=== PATIENT | female | born 1940 | race Caucasian/White ===

== ENCOUNTER → 2020-01-27 13:59 | Outpatient (CLI) | payer MEDICARE, OTHER, SELFPAY ==
--- NOTE | 2020-01-27 14:39 | CT_ITS ---
STUDY: CT LEFT ANKLE WITHOUT CONTRAST REASON FOR EXAM: Female, 79 years old. Fx lateral mall, lt fibula RADIATION DOSAGE (If Supplied By Facility): CTDIvol = ( 15.35 ) mGy, DLP = ( 342.25 ) mGycm TECHNIQUE: Thin section transaxial imaging of the ankle was obtained, with sagittal and coronal reconstructed images. Individualized dose optimization techniques were used for this CT. COMPARISON: None. FINDINGS: There is evidence of an avulsion fracture of the medial malleolus. Oblique fracture of the lateral malleolus. Vertical fracture of the posterior malleolus of the distal tibia. There is asymmetry of the ankle mortise. Normal talus, calcaneus, navicular and cuboid tarsal bones. Normal subtalar, talonavicular and calcaneocuboid articulations. Normal navicular-cuneiform, cuneiform tarsal bones and intercuneiform articulations. Normal tarsometatarsal articulations and visualized metatarsi. Soft tissue swelling. CT/Extremity Lower without Contra IMPRESSION: Avulsion fracture of the medial malleolus as well as oblique fracture of the lateral malleolus and vertical fracture of the posterior malleolus of the distal tibia. Asymmetry of the ankle mortise. Diffuse soft tissue swelling. Electronically Signed: [place], at 15:26 EDT , Service support ,
--- NOTE | 2020-01-27 14:40 | EKG12_ITS ---
Test Reason : PRE OP Blood Pressure : / mmHG Vent. Rate : 084 BPM Atrial Rate : 084 BPM P-R Int : 108 ms QRS Dur : 078 ms QT Int : 358 ms P-R-T Axes : 078 078 039 degrees QTc Int : 423 ms Sinus rhythm with short MI with Premature atrial complexes Otherwise normal ECG Confirmed by HEATHER VARNER ([id number]), rewrite editor MARILY MONTERROSO ([id number] on 01/30/2020 11:12:10 AM Referred By: Kiki Perales Confirmed By:HEATHER VARNER
[2020-01-27 14:53] LABS: Hematocrit 36.9 % (37-47); Hemoglobin 12.1 g/dL (12.0-15.0); Mean Corp Hgb Conc 32.8 g/dL (32-36); Mean Corpuscular Hgb 30.5 pg (27.0-32.0); Mean Corpuscular Volume 92.9 fL (81-99); Mean Platelet Vol. 9.9 fl (6.2-12.0); Platelet Count 185 K/mm3 (150-450); RBC Distribution Width CV 12.7 % (11.6-14.6); RBC Distribution Width SD 43.5 fl (35.1-43.9); Red Blood Count 3.97 M/mm3 (4.2-5.4); White Blood Count 7.6 K/mm3 (4.4-11.0)
[2020-01-27 15:31] LABS: Hemoglobin A1c 5.4 % (3.8-5.6)
[2020-01-27 15:43] LABS: Anion Gap 6 (5-15); BUN 13 mg/dL (7-18); Calcium,Total 8.6 mg/dL (8.5-10.1); Chloride 110 mmol/L (98-107); Creatinine, Serum 0.65 mg/dL (0.55-1.02); EST Glomerular Filtration Rate 93 mL/min (>60); Est Glom Filt Rate - Afr Amer 113 mL/min (>60); Glucose 102 mg/dL (74-106); Potassium 3.2 mmol/L (3.5-5.1); Sodium Level 141 mmol/L (136-145)
[2020-01-27 15:44] LABS: International Normalized Ratio 1.1; Prothrombin Time (Protime)PT. 14.1 SECONDS (11.7-14.9)
== END ==
PROVIDERS: Referring Provider Registered Nurse; Visit Provider Registered Nurse
DX: S82.62XA Displaced fracture of lateral malleolus of left fibula, initial encounter for closed fracture (principal); Z01.818 Encounter for other preprocedural examination; Z01.810 Encounter for preprocedural cardiovascular examination; Z01.812 Encounter for preprocedural laboratory examination
CPT/HCPCS: 36415; 73700; 80048; 83036; 85027; 85610; 93005

== ENCOUNTER 2020-02-07 14:39 | Inpatient (IN) | payer MEDICARE, OTHER, SELFPAY ==
[2020-02-07] VITALS (9 sets, daily range): BP systolic 119–145; BP diastolic 63–86; PULSE 75–89; RESP 16; TEMP 36.5–37.1; O2SAT 95–100; BMI 20.1
[2020-02-07] MEDS: Lactated Ringers 1,000 ML 100 ML IV ×3 (10:41→22:17)
--- NOTE | 2020-02-07 11:30 | RAD_ITS ---
HISTORY: ORIF L ANKLE TRIMAL FRACTURE ADDITIONAL HISTORY: None provided. TECHNIQUE: 15 fluoroscopic spot views of the left ankle Number of images including paperwork: 15 COMPARISON: CT 01/27/2020 FINDINGS: BONES: Trimalleolar right ankle fracture. Laterally applied plate and multiple screws are present transfixing the fibula. JOINTS: No subluxation. SOFT TISSUES: No distinct foreign body. Soft tissue swelling RAD/Ankle min 3 Views IMPRESSION: Intraoperative fluoroscopic guidance for ORIF of trimalleolar left ankle fracture. at 0800 Reported and signed by: Skyla Kwong MD Electronically Signed: Skyla Kwong MD at 8:00 EDT Tel , Service support ,
--- NOTE | 2020-02-07 14:52 | PCM.OPRPT ---
Problem List (1) Fracture of ankle, trimalleolar, left, closed Status: Acute Qualifiers: Encounter type: initial encounter Qualified Code(s): S82.852A - Displaced trimalleolar fracture of left lower leg, initial encounter for closed fracture (2) Dislocation of left ankle joint, initial encounter Status: Acute Report of Operation Date of Procedure: 02/07/20 Pre-Operative Diagnosis: 1. Left ankle trimalleolar fracture, closed. 2. Left ankle joint dislocation Post-Operative Diagnosis: Same as preoperative Surgery/Procedure Performed:: 1. Open reduction with internal fixation of left ankle joint. 2. Primary repair of deltoid ligament tear Description of Surgical Findings:: Consistent with diagnosis. Reduction of deformity of fibula achieved and held with internal fixation. Reduction of deformity of posterior malleolus fracture achieved. Medial malleolus fragment was too small to hold internal fixation, so was excised. Primary repair of the deltoid ligament was performed. forest fire fighter: Kiki Perales Type of Anesthesia:: General/Regional - With a popliteal and saphenous block given to the left lower extremity Anesthesiologist: Harlan Green Special Medications: 750mg of vancomycin given preoperatively Specimen's removed: Bone, medial malleolus, left ankle Drains: None Estimated Blood Loss (mL): 10 Description of Procedure: Hemostasis: Pneumatic thigh tourniquet placed to the level of the left thigh at 250 mmHg for 120 minutes Estimated blood loss: 10 mL Materials: #1. Milena 6 hole one third tubular plate. 2. [place] 3.5 x 10 mm locking screw x2. 3. Milena 3.5 x 12 mm locking screw x3. 4. [place] 3.5 x 14 mm locking screw. 5. Size 0 Vicryl. 6. Size 2-0 Vicryl. 7. Size 3-0 Vicryl. 8. Size 4-0 nylon. Injectables: None Complications: Significant comminution of the medial malleolus noted. Furthermore, her bone was soft. Due to this, the medial malleolus was unable to hold any internal fixation. Due to the size of the fragment and the comminution present, it was determined that the fragment to be removed and a primary repair of the deltoid ligament to be performed. Condition: Stable Indications: Patient is a 79-year-old female with no significant past medical history who suffered an injury to her left ankle on January 24, 2020. She was helping her outside. Her experienced a cardiac event, and fell off of a ladder. The then fell on her, hurting her left ankle. Patient presented to the [facility] emergency department at that time. X-rays were taken, revealing a left ankle trimalleolar fracture. Patient initially saw Kiki Perales, nurse practitioner, in my office on January 25, 2020 for initial evaluation. At that time, a full discussion was had with the patient and the patient's daughter about the patient's current clinical condition. Due to the nature of the fracture, surgical intervention was recommended. Preoperative testing was performed along with a CT scan of the left ankle. Evidence of fracture blisters were present at initial appointment. Local wound care was initiated, and patient first saw me in the office on January 29. At that time, the patient was significantly swollen her left ankle, and the fracture blisters showed minimal healing. I discussed with the patient and the daughter that due to the swelling and fracture blisters that were present, I recommended to wait at least 1 more week prior to surgical intervention. They were agreeable to this. The patient was placed back in a multilayer compressive dressing at that time. I discussed with the patient conservative and surgical interventions for this. Due to the nature of the fracture present in her active lifestyle, I recommended surgical intervention. I did discuss with the patient that due to her advanced age, she is at high risk for delayed or nonhealing wounds and delayed or nonhealing bone. I did propose an external fixator to help her. Patient declined an external fixator, and was requesting open reduction with internal fixation. The risks, benefits, possible outcomes, possible complications of the surgical procedure were discussed with the patient and the patient's daughter. These include but not limited to delayed or nonhealing wounds, delayed or nonhealing bone, loss of function of limb, DVT, infection, loss of limb, loss of life. All the patient's and patient's daughter's questions were answered to their satisfaction and all their concerns were addressed. No guarantees were made as to the outcome of the procedure. They understood all aspects of the procedure, and wished to proceed with the surgical intervention. I had the patient obtain medical clearance from her primary care physician, who cleared her. CT scan was then performed her left ankle, and when the patient came back to my office on February 05, it was reviewed. I did discuss with them the surgical plan at that time, and they were agreeable at that time. It was then determined, after looking at the advanced healing of the fracture blisters and the reduction of edema in her left ankle, the surgical intervention would be performed on February 07, 2020. Operative report: Before the patient was brought to the operating room, the risks, benefits, possible outcomes, possible complications of the procedure were discussed with the patient and the patient's daughter once again. All their questions were answered to their satisfaction and all their concerns were addressed. No guarantees were made as to the outcome of the procedure. The patient understood all aspects of the procedure, and consent was then signed by the patient. Before the patient was brought to the operating room, the anesthesiologist administered a popliteal block to the left lower extremity. Patient was then brought into the operating room. At that time, preoperative antibiotics were given. Patient was then placed on the operating room table in the supine position. Adequate padding was placed in all areas of pressure points. Anesthesia then took control of the airway. After timeout, under general anesthesia, well-padded pneumatic thigh tourniquet was placed to level left thigh. Next, 10 mL of 2% lidocaine plain was distributed a proximal saphenous nerve block fashion in the area of the tibial tuberosity. The left foot, ankle, leg were then scrubbed, prepped, draped in the usual sterile manner. Next, attention was then directed to the lateral malleolus of the left ankle. Radiograph evaluation was used to determine the distal tip of the lateral malleolus, level of the fracture, and the lateral aspect of the distal one third of the fibular shaft. These were then marked on the patient. Radiograph evaluation was used to determine the level of the fracture of the medial malleolus and the medial malleolus fracture. These were then marked on the patient as well. At this time, the left lower extremity was elevated and exsanguinated via Esmarch and inflation with pneumatic thigh tourniquet was performed to 250 mmHg. Attention was then directed to the lateral aspect of the left ankle at the level of the lateral malleolus. At this time, #15 blade was used to perform a linear longitudinal incision starting at the distal tip of the lateral malleolus extending proximally to a level proximal to the fibular fracture. This incision was approximately 6 cm in length. This incision was deepened utilizing sharp and blunt dissection. Care was taken retract all vital neural and vascular structures. All bleeders were cauterized and ligated as necessary. At this time, a linear periosteal incision was made in line with the original skin incision. The periosteal and capsular structures then reflected anteriorly and posteriorly, thus exposing the fibular fracture at the operative site. At this time, the fibula fracture was noted to be comminuted. Furthermore, her bone was noted to be significantly soft. Due to this, I believed that an interfragmentary screw would not hold. It was then determined that a locking plate would be placed on the lateral aspect of the fibula to hold the fibula in the correct the reduced position. The fibula was then reduced and held via temporary fixation. Radiograph evaluation was then performed. The fibula was noted to be out the length and in a reduced position. At this time, the [place] one third tubular plate was placed on the lateral aspect the left fibula and held via temporary fixation. Radiograph evaluation was then performed. The plate was noted to be in adequate position. This plate was then held via locking screws. Of note during insertion of the screws was the adequate compression of the plate to the bone. Furthermore, no shifting any of the fragments occurred during insertion of the screws. Once her screws were fully inserted, all temporary fixation was then removed. Radiograph evaluation was then performed once again. The fibula was noted to be out to length, and held in the reduced position via the screws. Live radiograph evaluation was used to assess the posterior malleolus fracture. Due to the reduction of the fibula, the posterior malleolus fracture was reduced. Furthermore, due to the size of the fragment and the newly reduced position, it was determined that no fixation would be needed for this. The fragment with less than 25% of the articular surface of the ankle joint, and it was believed that it would not interfere with ankle joint range of motion. Radiograph evaluation also was used to perform the hook test to assess the syndesmosis of the left ankle. No widening was noted at the level of the distal tibia fibular joint. The syndesmosis was deemed intact. At this time, attention was then directed to the medial aspect of the medial malleolus. Next, a #15 blade was used to perform a curvilinear incision starting at the level of the fracture of the medial malleolus extending distally to the distal tip of the medial malleolus. This incision was deepened utilizing blunt dissection down to the level of the medial malleolar fragment. At this time, this fragment was noted to be comminuted. This fragment was reduced via temporary fixation. Multiple attempts were performed to hold this fragment in the corrected position with a size 4-0 and size 3-0 cannulated cancellus screw. With each attempt, it was noted that the fragment became more comminuted. Furthermore, the bone was noted to be soft, and would not hold the fixation. Due to the size of the fracture that was present and the multiple comminuted pieces, it was decided that internal fixation would not benefit the patient. The fragment and the multiple comminuted pieces were removed and passed from the operative site. Visual inspection was then performed of the deltoid ligament. Due to the injury, there was evidence of tearing of the deltoid ligament. A size 0 Vicryl was used to repair the deltoid ligament in a pants over vest stitch fashion. Adequate realignment of the deltoid ligament was had. Radiograph evaluation was then performed at this time. The talus was noted to be back in a rectus position underneath the tibia in the AP and the lateral view. The fibula was noted to be out the length and held in the corrected reduced position via the internal fixation. The posterior malleolus fracture was noted to be reduced and back into anatomical alignment. There was no radiographic evidence of medial malleolar fragments at this time. The pneumatic thigh tourniquet was then released and a prompt hyperemic response noted to the entirety of the left lower extremity. Each surgical site was then irrigated copious amounts normal sterile saline. The subcutaneous tissue of the medial surgical site was reapproximated coapted utilizing 2-0 Vicryl and 3-0 Vicryl. The skin of the medial surgical site was reapproximated coapted utilizing 4-0 nylon in a simple interrupted and horizontal mattress fashion. The periosteal and capsular structures of the lateral surgical site were reapproximated coapted utilizing 2-0 Vicryl and 3-0 Vicryl. The subcutaneous tissue was reapproximated coapted utilizing 2-0 Vicryl and 3-0 Vicryl. The skin was reapproximated coapted utilizing 4-0 nylon in a simple interrupted and horizontal mattress fashion. Each surgical site was then dressed with Betadine soaked gauze. The fracture blister sites were dressed with xeroform. The left ankle was dressed with a dry sterile dressing setting of 4 x 4 gauze ABD pads, wrapped with kerlix. Multiple ABD pads were placed around the ankle to aid in protection. The left foot and ankle were then wrapped with an Damon bandage. At this time, a stockinette was placed on the left lower extremity from the toes to the tibial tuberosity. Cast padding was wrapped from the metatarsal heads extending proximally to level just distal to the tibial tuberosity. A posterior splint was fashioned to the left lower extremity and was adhered to the left lower extremity utilizing Damon bandages. Care was taken to make sure the foot and ankle held in neutral position as the posterior splint dried. Neurovascular status was assessed at the end of the application and deemed intact to left lower extremity. Patient tolerated the anesthesia and procedure well and was transported to the PACU vital signs stable neurovascular status intact the left lower extremity. After period of postoperative monitoring, patient will be admitted for further evaluation and continued pain management. The goal would be to transfer this patient to a rehabilitation facility. The family services assistant, the nurse practitioner, was utilized throughout the entire procedure. She helped with patient positioning, holding of limb, holding of retractors. She helped with exposure throughout. She helped with bandage application, and cast application. Without the family services assistant, surgical time would have been increased and surgical outcome could have been less optimal. - Complications Significant comminution noted of the medial malleolus. Furthermore, the medial malleolus fracture was soft, it was not able to hold any internal fixation. Due to the size and comminution of the fracture fragment, it was determined to remove the fragment in his entirety. Primary repair of the deltoid ligament was then performed. - Admit VTE Documentation VTE Present on Admission: No VTE Mechan Device Prophylaxis: SCD's VTE Pharm Prophylaxis ordered?: Yes
--- NOTE | 2020-02-07 15:30 | CASEMGMT ---
Social Work Note NIKOS updated by RACHEL that pt will need SNF at discharge, family prefers for pt to stay at [facility]. NIKOS placed a call to [facility] in TCU. [facility] states she may have a bed available on TCU but will follow up with NIKOS tomorrow. NIKOS to continue to follow. Sera Gerardo PLUGMAN, ASTRONOMY DEPARTMENT CHAIR
--- NOTE | 2020-02-07 15:31 | PCM.HP.STD ---
Problem List (1) Fracture of ankle, trimalleolar, left, closed Status: Acute Qualifiers: Encounter type: initial encounter Qualified Code(s): S82.852A - Displaced trimalleolar fracture of left lower leg, initial encounter for closed fracture (2) Dislocation of left ankle joint, initial encounter Status: Acute History of Present Illness Date of Admission: 02/07/20 Chief Complaint: Painful left ankle secondary to traumatic injury Patient is a 79-year-old female with PMH of OA and hard of hearing who suffered an injury to her left ankle on January 24, 2020. She was helping her outside. Her experienced a cardiac event, and fell off of a ladder. The then fell on her, hurting her left ankle. Patient noticed significant pain of her left ankle, and there was a deformity as well. Patient was unable to bear weight on left ankle due to the injury. Patient presented to the [facility] emergency department at that time. X-rays were taken, revealing a left ankle trimalleolar fracture. A closed reduction was performed, and patient was discharged with a posterior splint and instructed to remain NWB to left ankle. Patient initially saw Kiki Perales, nurse practitioner, in my office on January 25, 2020 for initial evaluation. At that time, a full discussion was had with the patient and the patient's daughter about the patient's current clinical condition. Due to the nature of the fracture, surgical intervention was recommended. Preoperative testing was performed along with a CT scan of the left ankle. Evidence of fracture blisters were present at initial appointment. Local wound care was initiated, and patient first saw me in the office on January 29. At that time, the patient was significantly swollen her left ankle, and the fracture blisters showed minimal healing. I discussed with the patient and the daughter that due to the swelling and fracture blisters that were present, I recommended to wait at least 1 more week prior to surgical intervention. They were agreeable to this. The patient was placed back in a multilayer compressive dressing at that time. I discussed with the patient conservative and surgical interventions for this. Due to the nature of the fracture present in her active lifestyle, I recommended surgical intervention. I did discuss with the patient that due to her advanced age, she is at high risk for delayed or nonhealing wounds and delayed or nonhealing bone. I did propose an external fixator to help her. Patient declined an external fixator, and was requesting open reduction with internal fixation. The risks, benefits, possible outcomes, possible complications of the surgical procedure were discussed with the patient and the patient's daughter. These include but not limited to delayed or nonhealing wounds, delayed or nonhealing bone, loss of function of limb, DVT, infection, loss of limb, loss of life. All the patient's and patient's daughter's questions were answered to their satisfaction and all their concerns were addressed. No guarantees were made as to the outcome of the procedure. They understood all aspects of the procedure, and wished to proceed with the surgical intervention. I had the patient obtain medical clearance from her primary care physician, who cleared her. CT scan was then performed her left ankle, and when the patient came back to my office on February 05, it was reviewed. I did discuss with them the surgical plan at that time, and they were agreeable at that time. It was then determined, after looking at the advanced healing of the fracture blisters and the reduction of edema in her left ankle, the surgical intervention would be performed on February 07, 2020. Patient does live at home with her , and her is still in the hospital. Patient was unable able to be perform activities daily living on her own, and will not have assistance. Due to the pain that was present and her safety, she was admitted for pain management and transition to a subacute nursing facility. [] Past Medical History Medical History: Medical History (Last Updated 02/07/20 @ 15:[address] Refugio Leyva, JENNIFER) Hard of hearing H91.90 Osteoarthritis (arthritis due to wear and tear of joints) M19.90 Allergies amoxicillin Allergy (Verified 02/07/20 10:30) Hives clindamycin Allergy (Verified 02/07/20 10:30) Hives diphenhydramine [From Benadryl] Allergy (Verified 02/07/20 10:30) Swelling Home Medications: Ambulatory Orders Medication Instructions Recorded Donley 650 mg PO DAILY 02/01/20 Ascorbic Acid [Vitamin C] 500 mg PO DAILY 02/01/20 Cartilage/Collagen/Bor/Hyalur 1 ea PO DAILY 02/01/20 [Joint Health Tablet] Fish Oil/Dha/Epa [Fish Oil 1,200 1 ea PO DAILY 06/03/20 mg Fish Oil] Oxycodone HCl/Acetaminophen 1 ea PO Q6H PRN 02/01/20 [Oxycodone-Acetaminophen 5-325] Vitamin E 400 unit PO DAILY 02/01/20 Surgical History: no surgical history Psychiatric History: No pertinent psych hx WAFER FABRICATOR History: No pertinent WAFER FABRICATOR history Lives: Spouse/ Significant Other Smoking Status: Never smoker Tobacco Use: Non-smoker Alcohol: None Drugs: None Review of Systems Constitutional: Denies: Anorexia, Chills, Fever, Night Sweats Eyes: Denies: Blurred vision, Double vision HEENT: Reports: Difficulty Hearing, Hard of Hearing. Denies: Difficulty Swallowing, Dysphasia, Ear Pain, Eye Pain Cardiovascular: Denies: Chest Pain, Claudication, Chest Pressure, Chest Tightness, Edema Respiratory: Denies: Cough, Hemoptysis, Pleuritic Pain, Shortness of Breath, Shortness of breath at rest, Shortness of breath upon exertion, Wheezing Gastrointestinal: Denies: Abdominal Pain, Constipation, Diarrhea, Dyspepsia, Hematemesis, Nausea, Vomiting Genitourinary: Denies: Dysuria, Frequency, Hematuria, Hesitancy, Incontinence Gynecological: Denies: Breast symptoms, Excessively long or heavy periods Musculoskeletal: Reports: Arm Pain - Admits to right shoulder pain secondary tofall, Leg Pain - Admits to left ankle pain secondary to injury Skin: Denies: Dryness, Jaundice, Lesions Neurological: Denies: Balance problems, Blurred vision, Double vision, Change in Speech, Slurred speech, Confusion Psychiatric: Denies: Anxiety, Depression Endocrine: Denies: Change in Body Habitus, Heat/ Cold Intolerance, Polydipsia, Polyuria Comment: Patient does wear glasses VTE Information - Inpt Only VTE Present on Admission: No VTE Mechan Device Prophylaxis: SCD's VTE Pharm Prophylaxis ordered?: Yes Patient Problems: Active and Suspected Problems (Last Updated 02/07/20 @ 15:[address] Refugio Leyva, DPM) Fracture of ankle, trimalleolar, left, closed (Acute) Dislocation of left ankle joint, initial encounter (Acute) Subjective: Patient seen at bedside resting comfortably. Patient is status post surgical intervention. Patient admits to no pain of the left lower extremity, states that she is comfortable at this time. Patient denies any other acute complaints at this time. Currently, patient denies fever, chills, nausea, vomiting, shortness of breath, chest pain. Patient denies left calf pain. Objective: Lower extremity physical exam: Dressing is clean, dry, intact the left lower extremity with no evidence of strikethrough. Capillary fill time is less than 3 seconds to all digits of the left foot. Sensation is absent to the left foot secondary to lower extremity nerve block given by anesthesia. Foot and ankle appear in a rectus position at this time. - Physical Exam Vitals/I&O's: Vital Signs Temp Pulse Resp BP Pulse Ox 98.4 F 75 16 145/86 H 96 02/07/20 10:31 02/07/20 10:31 02/07/20 10:31 02/07/20 10:31 02/07/20 10:31 Oxygen Delivery Method Room Air Weight: 49.895 kg Body Mass Index (BMI) 20.1 Intake and Output for Last 24 Hours 02/05/20 02/06/20 02/07/20 23:59 23:59 23:59 Intake Total 265 / 265 Balance 265 / 265 General: Alert, Oriented x3, Cooperative, No apparent distress HEENT: Atraumatic, PERRLA, EOMI, Normocephalic Oral: Moist Mucosa Neck: Supple, No JVD Lungs: Clear to auscultation, Normal air movement, No rhonchi, No wheeze, No rales Cardiovascular: Regular rate, Regular Rhythm, Normal S1, Normal S2 Abdomen: Bowel Sounds Present, Soft, Non Tender, Non-Distended Extremities: Capillary Refill Less than 3 Seconds, Peripheral Pulses Normal Skin: No breakdown - Left ankle fracture blisters that were addressed during operative intervention. No other areas of breakdown was noted. Musculoskeletal: No Tenderness to Palpation of Joints or Extremities, No Muscle Wasting, Arthritic Changes - Noted throughout the hands, knees, right ankle Neurological: Neuro grossly intact, Motor Exam 5/5 strength throughout, Sensory exam intact to light touch and pain Psych/Mental Status: Alert and oriented to time, place, person, mood and affect Laboratory Results 02/07/20 12:30: COVID-19 ([facility]) Not Detected Current Medications Hydrocodone Bitart/Acetaminophen (Beverly 5mg-325mg) 1 - 2 tablet PO Q6H PRN PRN PRN Reason: Pain Score 1-5/10 Docusate Sodium (Colace) 100 mg PO BID PRN PRN PRN Reason: CONSTIPATION Enoxaparin Sodium (Lovenox) 40 mg SC DAILY@0600 [facility] Lactated Ringer's () 1,000 mls @ 100 mls/hr IV .Q10H [facility] Last Admin: 02/07/20 10:41 Dose: 100 mls/hr Documented by: Morphine Sulfate () 1 mg IV Q2H PRN PRN PRN Reason: Pain Score 6-10/10 Ondansetron HCl (Zofran) 4 mg IV Q8H PRN PRN PRN Reason: Nausea Prochlorperazine Maleate (Compazine Tablet) 5 - 10 mg PO Q6H PRN PRN PRN Reason: Nausea/vomiting Assessment/Plan All Active Problems (Last Updated 02/07/20 @ 15:[address] Refugio Leyva, JENNIFER) Fracture of ankle, trimalleolar, left, closed (Acute) Dislocation of left ankle joint, initial encounter (Acute) Assessment: This is an 79-year-old female status post left ankle bimalleolar fracture open reduction with internal fixation. Plan: Patient chart reviewed and patient evaluated. Full discussion had with the patient and the patient's daughter about the patient's current clinical condition. I discussed with the patient and the patient's daughter the operative findings and interventions that were performed. Due to the patient's current living status, pain, and the injury of her left ankle, I recommend admission for pain management and eventual transfer to her nursing facility. Patient and patient's daughter agreeable to this. At this time, the patient to keep the dressing clean, dry, intact the left lower extremity. Patient did not get the dressing wet. Postoperative pain medications ordered for the patient. Postoperative antibiotics ordered for the patient. DVT prophylaxis ordered for the patient. Patient is to remain nonweightbearing to left lower extremity. An order for physical therapy was placed to assist in nonweightbearing to left lower extremity. Appreciate physical therapy input. Social work consult was placed to assist in transfer after acute care stay. I appreciate social work input. Continue home medications as ordered. Continue ice around the left knee and elevation of left lower extremity. Patient can begin a normal diet when tolerated. Procedure Criteria Procedure Type: Essential Procedure Essential: Yes Criteria Statement: On 11/15/2019 the [facility] of [facility] ([facility]) Public Order signed by [facility] Director Gill Thomas M.D., regarding the Management of Non-Essential Surgeries and Procedures for the purpose of preserving Personal Protective Equipment (PPE) and critical hospital capacity and resources within [place] went into effect as of 11/16/2019 at 5:00PM. According to the [facility] Public Order: This action will remain in full force and effect until the State of Emergency declared by the Governor no longer exists or the Director of the [facility] rescinds or modifies this Order. This [facility] order stated all non-essential or elective surgeries and procedures that utilize PPE should be delayed unless there is undue risk to the current or future health of a patient. After reviewing the aforementioned [facility] Public Order and the patient's clinical case, I have determined that the scheduled procedure meets the criteria to go forward. Risk to Patient if Procedure Delayed: Threat of permanent dysfunction of an extremity or organ if delayed Inpatient E&M: [id number] Init Hosp L2
--- NOTE | 2020-02-07 15:45 | RAD_ITS ---
STUDY: X-RAY - LEFT ANKLE REASON FOR EXAM: Female, 79 years old. LEFT ANKLE ORIF TECHNIQUE: 3 view(s) of the ankle. COMPARISON: None. FINDINGS: Postsurgical changes status post open reduction internal fixation of distal fibular fracture with indwelling orthopedic hardware. Mild displaced fracture of the distal tibial plafond RAD/Ankle min 3 Views IMPRESSION: Status post ORIF distal fibular fracture Electronically Signed: Tyler Andrdae MD at 16:59 EDT , Service support ,
[2020-02-07] MEDS: HYDROcodone Bitartrate/Apap 5/325 Tablet PO ×2 (18:40→22:39)
[2020-02-07] MEDS: Morphine 2 MG/ML Syringe 1 MG IV (20:09)
[2020-02-08] MEDS: Morphine 2 MG/ML Syringe 1 MG IV (01:21)
[2020-02-08 03:30] VITALS: BP 162/79; PULSE 84; RESP 16; TEMP 36.8; O2SAT 95
[2020-02-08] MEDS: Enoxaparin 40 MG/0.4 ML Syringe SC (06:00)
[2020-02-08 07:43] VITALS: BP 119/60; PULSE 89; RESP 16; TEMP 37.3; O2SAT 95
[2020-02-08] MEDS: Lactated Ringers 1,000 ML 100 ML IV (08:58)
[2020-02-08] MEDS: Doxycycline 100 MG CAPSULE PO (10:26)
--- NOTE | 2020-02-08 10:55 | CASEMGMT ---
Social Work Note SW received message from Ning in TCU stating she spoke with [facility] and TCU does have a bed available for pt today. Sera Gerardo VOCATIONAL COORDINATOR, COST RECOVERY TECHNICIAN
--- NOTE | 2020-02-08 12:03 | CASEMGMT ---
Addendum entered by Sera Gerardo 02/08/20 12:08: SW placed a call to Ning in TCU and left message informing her that pt may be discharged today to TCU. Original Note: Social Work Assessment Referral Date: 02/07/2020 Date of Assessment: 02/08/2020 Reason for consult: SNF Informant: /PA Personal Status: SW met with pt to complete initial assessment. SW introduced self and role at [facility]. Pt is alert and orientated x3. Pt states that she lives with her in a one story home with two steps to enter. Pt states no handrails next to steps. Pt states that she has a walker at home, denied other DME. Pt can't remember who her PCP is, states my daughter handles all of that information. Pharmacy is [facility]. Per chart, pt's PCP is Janis Leal. Substance Abuse Hx: Pt denied Mental Health Hx: Pt denied HHC: Pt denied SNF: Pt denied SW spoke with pt regarding discharge plans and that this worker was updated yesterday that pt's family wanted pt to stay at TCU for therapy before returning home. SW updated pt that TCU does have a bed available and is able to accept. SW did provide pt with list of SNF that accept pt's insurance. Pt agreeable to TCU. Pt gave this worker permission to call her daughter Leila to update. SW placed a call to pt's daughter Leila and updated her on acceptance to TCU. Leila states understanding. Plan: TCU once medically cleared Sera Gerardo BODY COVERER, ISOTOPE TECHNICIAN
--- NOTE | 2020-02-08 12:21 | PCM.DC.SUM ---
Discharge Date and Diagnosis - Problem List Patient Problems: Active and Suspected Problems (Last Updated 02/07/20 @ 15:[address] Refugio Leyva DPM) Fracture of ankle, trimalleolar, left, closed (Acute) Dislocation of left ankle joint, initial encounter (Acute) Date of Admission: 02/07/20 Date of Discharge: 02/08/20 - Primary Discharge Diagnosis Acute Problems: Active Problems (Last Updated 02/07/20 @ 15:[address] Refugio Leyva DPM) Fracture of ankle, trimalleolar, left, closed (Acute) Dislocation of left ankle joint, initial encounter (Acute) - Secondary Discharge Diagnosis Chronic Problems: Osteoarthritis Hard of hearing Hospital Course and Treatment Imaging Results: STUDY: X-RAY - LEFT ANKLE taken postoperative on 02/07/2020 REASON FOR EXAM: Female, 79 years old. LEFT ANKLE ORIF TECHNIQUE: 3 view(s) of the ankle. COMPARISON: None. FINDINGS: Postsurgical changes status post open reduction internal fixation of distal fibular fracture with indwelling orthopedic hardware. Mild displaced fracture of the distal tibial plafond RAD/Ankle min 3 Views IMPRESSION: Status post ORIF distal fibular fracture Operations: - - left ankle trimalleolar open reduction with internal fixation Summary of Care Provided: [] Patient is a 79-year-old female with PMH of OA and hard of hearing who suffered an injury to her left ankle on January 24, 2020. She was helping her outside. Her experienced a cardiac event, and fell off of a ladder. The then fell on her, hurting her left ankle. Patient noticed significant pain of her left ankle, and there was a deformity as well. Patient was unable to bear weight on left ankle due to the injury. Patient presented to the [facility] emergency department at that time. X-rays were taken, revealing a left ankle trimalleolar fracture. A closed reduction was performed, and patient was discharged with a posterior splint and instructed to remain NWB to left ankle. Patient initially saw Kiki Zimmerly, nurse practitioner, in my office on January 25, 2020 for initial evaluation. At that time, a full discussion was had with the patient and the patient's daughter about the patient's current clinical condition. Due to the nature of the fracture, surgical intervention was recommended. Preoperative testing was performed along with a CT scan of the left ankle. Evidence of fracture blisters were present at initial appointment. Local wound care was initiated, and patient first saw me in the office on January 29. At that time, the patient was significantly swollen her left ankle, and the fracture blisters showed minimal healing. I discussed with the patient and the daughter that due to the swelling and fracture blisters that were present, I recommended to wait at least 1 more week prior to surgical intervention. They were agreeable to this. The patient was placed back in a multilayer compressive dressing at that time. I discussed with the patient conservative and surgical interventions for this. Due to the nature of the fracture present in her active lifestyle, I recommended surgical intervention. I did discuss with the patient that due to her advanced age, she is at high risk for delayed or nonhealing wounds and delayed or nonhealing bone. I did propose an external fixator to help her. Patient declined an external fixator, and was requesting open reduction with internal fixation. The risks, benefits, possible outcomes, possible complications of the surgical procedure were discussed with the patient and the patient's daughter. These include but not limited to delayed or nonhealing wounds, delayed or nonhealing bone, loss of function of limb, DVT, infection, loss of limb, loss of life. All the patient's and patient's daughter's questions were answered to their satisfaction and all their concerns were addressed. No guarantees were made as to the outcome of the procedure. They understood all aspects of the procedure, and wished to proceed with the surgical intervention. I had the patient obtain medical clearance from her primary care physician, who cleared her. CT scan was then performed her left ankle, and when the patient came back to my office on February 05, it was reviewed. I did discuss with them the surgical plan at that time, and they were agreeable at that time. It was then determined, after looking at the advanced healing of the fracture blisters and the reduction of edema in her left ankle, the surgical intervention would be performed on February 07, 2020. Patient does live at home with her , and her is still in the hospital. Patient was unable able to be perform activities daily living on her own, and will not have assistance. Due to the pain that was present and her safety, she was admitted for pain management and transition to a subacute nursing facility. Patient's pain has been under good control. She has a position at the transitional care unit [facility], which was she will be transferred to today. This will assist her in her activities of daily living with her remaining nonweightbearing. She has good rehab potential and a good prognosis. Patient Problems: Active and Suspected Problems (Last Updated 02/07/20 @ 15:[address] Refugio Leyva, DPJustino) Fracture of ankle, trimalleolar, left, closed (Acute) Dislocation of left ankle joint, initial encounter (Acute) Subjective: Patient was seen at bedside resting comfortably. Patient admits to minimal pain of her left ankle, improved from preoperative assessment. Patient denies any acute complaints at this time and denies any acute overnight events. No acute overnight events reported by nursing staff. Currently, patient denies fever, chills, nausea, vomiting, shortness of breath, chest pain. Patient denies left calf pain. Objective: Left lower extremity exam: Dressing is clean, dry, intact to left lower extremity with no evidence of strikethrough present. No evidence of disturbance noted. Capillary refill time is less than 3 seconds all digits of the left foot. Toes are warm and comparable to the contralateral extremity. Light touch sensation is intact to toes of left foot Foot and ankle appear in a rectus position and are underneath the tibia No pain upon palpation and compression of left calf - Physical Exam Vitals/I&O's: Vital Signs Temp Pulse Resp BP Pulse Ox 99.1 F 89 16 119/60 95 02/08/20 07:43 02/08/20 07:43 02/08/20 07:43 02/08/20 07:43 02/08/20 07:43 Oxygen Delivery Method Room Air Weight: 49.895 kg Body Mass Index (BMI) 20.1 Intake and Output for Last 24 Hours 02/06/20 02/07/20 02/08/20 23:59 23:59 23:59 Intake Total 2503.34 / 2623.34 1281.67 / 1281.67 Output Total 400 / 400 Balance 2503.34 / 2623.34 881.67 / 881.67 General: Alert, Oriented x3, Cooperative, No apparent distress HEENT: Atraumatic, PERRLA Oral: Moist Mucosa Neck: Supple, No JVD Lungs: Clear to auscultation, Normal air movement, No rhonchi, No wheeze, No rales Cardiovascular: Regular rate, Regular Rhythm, Normal S1, Normal S2 Abdomen: Bowel Sounds Present, Soft, Non Tender, Non-Distended Extremities: Capillary Refill Less than 3 Seconds, No Calf Tenderness Skin: No rashes, No breakdown Musculoskeletal: Tenderness - upon palpation and compression of left ankle Neurological: Sensory exam intact to light touch and pain Psych/Mental Status: Alert and oriented to time, place, person, mood and affect Current Medications Hydrocodone Bitart/Acetaminophen ([place] 5mg-325mg) 1 - 2 tablet PO Q6H PRN PRN PRN Reason: Pain Score 1-510 Last Admin: 02/07/20 22:39 Dose: 1 tablet Documented by: Docusate Sodium (Colace) 100 mg PO BID PRN PRN PRN Reason: CONSTIPATION Doxycycline Monohydrate (Doxycycline) 100 mg PO BID [facility] Last Admin: 02/08/20 10:26 Dose: 100 mg Documented by: Enoxaparin Sodium (Lovenox) 40 mg SC DAILY@0600 [facility] Last Admin: 02/08/20 06:00 Dose: 40 mg Documented by: Lactated Ringer's () 1,000 mls @ 100 mls/hr IV .Q10H [facility] Last Admin: 02/08/20 08:58 Dose: 100 mls/hr Documented by: Sodium Chloride () 250 mls @ 15 mls/hr IV .[id number] PRN PRN Reason: Saline Flush Morphine Sulfate () 1 mg IV Q2H PRN PRN PRN Reason: Pain Score 6-10/10 Last Admin: 02/08/20 01:21 Dose: 1 mg Documented by: Ondansetron HCl (Zofran) 4 mg IV Q8H PRN PRN PRN Reason: Nausea Prochlorperazine Maleate (Compazine Tablet) 5 - 10 mg PO Q6H PRN PRN PRN Reason: Nausea/vomiting Sodium Chloride () 10 - 40 ml IV UD PRN PRN Reason: SALINE FLUSH Discharge Diet: No Restrictions Discharge Activity: May Not Drive, May Not Shower, Use Walker, Use Crutches Ice area for (Minutes): 20 Weight Bearing Status: No weight bearing - to left leg Lifting Restrict to (lbs):: 5 Keep extremity elevated above heart level: Left Leg Additional Activity Instructions:: Keep dressing to left leg clean, dry, intact. Do not get dressing wet. Reinforce dressing as necessary with gauze, ABD pads, Kerlix, Damon bandage. Elevate left foot above level of heart as often as possible. Ice around the left knee 20 minutes on every hour as needed for pain. Do not walk or stand on left foot. Use crutches or walker for assistance. Pain medication prescription is as needed. Patient can supplement with [id number] Tylenol as needed. Antibiotic and aspirin are to begin immediately upon transfer at the next regularly scheduled dose. Call your doctor if your incision/area has: Continuous Slow Oozing, Sudden Increased Bleeding, Increased Pain/ Swelling Call your doctor if you observe: Fever of 101 or Higher, Coldness, Increased Pain, Inability to have a bowel movement, Shortness of breath, Chest pain, Increased palpitations (irregular heartbeat), Calf discomfort, Uncontrolled pain Suture Line Care: Avoid Pulling/Pushing, Avoid Pinching/Bending Change Dressing in (Days):: 0 - Do not change dressing. Dressing will be changed at follow up appointment. Cleanse incision/area with: Keep Dressing Clean & Dry Home Medications: Medications to take at Discharge [place] 650 mg PO DAILY 02/01/20 Ascorbic Acid [Vitamin C] 500 mg PO DAILY 02/01/20 Cartilage/Collagen/Bor/Hyalur [Joint Health Tablet] 1 ea PO DAILY 02/01/20 Fish Oil/Dha/Epa [Fish Oil 1,200 mg Fish Oil] 1 ea PO DAILY 02/01/20 Oxycodone HCl/Acetaminophen [Oxycodone-Acetaminophen 5-325] 1 ea PO Q6H PRN 02/01/20 Vitamin E 400 unit PO DAILY 02/01/20 Docusate Sodium [Colace] 100 mg PO BID PRN PRN capsule 02/08/20 Doxycycline 100 mg PO BID capsule 02/08/20 Ondansetron [Zofran] 4 mg IV Q8H PRN PRN vial 02/08/20 proCHLORPERazine tablet [Compazine tablet] 5 - 10 mg PO Q6H PRN PRN tablet 02/08/20 Primary Care Physician: Janis Leal NP-C [Primary Care Provider] - Please follow up with your Primary Care Physician in: At regularly scheduled appointment Please Follow Up With: Refugio Leyva DPM When: on 02/13/2020 at 2:45pm in [place] Office Disposition: [facility] facility Minutes spent on discharge:: 30 Medical Necessity - Tobacco Use Smoking Status: Never smoker Tobacco Use: Non-smoker Meaningful Use Info Meaningful Use Diagnoses (Choose all that apply): None applicable Inpatient E&M: 89362 Disch Hosp
--- NOTE | 2020-02-08 13:43 | CASEMGMT ---
Social Work Note SW updated physician that pt can go to TCU today. Pt is medically cleared for discharge. NIKOS placed Transfer to extended care facility, signed medication list and any scripts in SNF folder and copy on pt's chart. NIKOS placed a call to Ning in TCU and updated her that pt will be discharged to TCU today. NIKOS placed a call to pt's daughter Leila and updated her on discharge today. RN updated. Plan: TCU today Sera Gerardo CHICKEN BUYER, HOUSEHOLD COORDINATOR
[2020-02-08 13:50] VITALS: BP 132/62; PULSE 86; RESP 16; TEMP 37.8; O2SAT 99
[2020-02-08] MEDS: HYDROcodone Bitartrate/Apap 5/325 Tablet PO (13:53)
[2020-02-08 16:26] VITALS: TEMP 36.9
== END 2020-02-08 16:36 | disposition skilled nursing facility (03) | DRG 494 ==
PROVIDERS: Anesthesiology; Admitting Provider Podiatrist Foot & Ankle Surgery; PCP Nurse Practitioner Primary Care; Referring Provider Podiatrist Foot & Ankle Surgery; Visit Provider Podiatrist Foot & Ankle Surgery
DX: S82.852A Displaced trimalleolar fracture of left lower leg, initial encounter for closed fracture (principal); W50.0XXA Accidental hit or strike by another person, initial encounter; Y93.H9 Activity, other involving exterior property and land maintenance, building and construction; Y92.9 Unspecified place or not applicable; M19.90 Unspecified osteoarthritis, unspecified site; H91.90 Unspecified hearing loss, unspecified ear
CPT/HCPCS: 73610; 76000; 87635; 97162; 97166; 99251; C1713; G2023; J7050; J7120; G0463; J2405; U0003

== ENCOUNTER 2020-02-08 16:42 | Inpatient (IN) | payer MEDICARE, OTHER, SELFPAY ==
[2020-02-07 17:43] VITALS: BMI 20.1
[2020-02-08 16:55] VITALS: BP 133/65; PULSE 80; RESP 16; TEMP 36.8; O2SAT 94; BMI 23.2
[2020-02-08] MEDS: Doxycycline 100 MG CAPSULE PO (18:49)
--- NOTE | 2020-02-08 20:24 | HP.PCM_ITS ---
Problem List (1) Debility Status: Acute (2) Hearing loss Status: Chronic (3) Fracture of ankle, trimalleolar, left, closed Status: Acute Qualifiers: (4) Dislocation of left ankle joint, initial encounter Status: Acute History of Present Illness Date of Admission: 02/08/20 Chief Complaint: Here for rehabilitation, strengthening, prior to discharge home with family. The patient is a 79 year old Female with below past medical history with followin01/24/2020 Left ankle injury, fell off ladder on her. 01/24/[address] [facility] Emergency Department bilateral malleolar fracture, subluxation left ankle. Ankle reduced, well padded splint applied. Walking with walker, non weight bearing left lower extremity. 01/27/2020 CT left ankle showed left ankle fracture. 01/27/2020 EKG sinus rhythm with short CO with premature atrial contractions. 02/07/2020 Dr. Tristian Leyva performed ORIF left ankle joint, primary repair of deltoid ligament tear. 02/08/2020 Admit to TCU with debility, here for rehabilitation, strengthening, prior to discharge home. Past Medical History Past Medical History (Chronic Problems): Chronic Problems (Last Updated 02/07/20 @ 15:[address] Refugio Leyva, JENNIFER) Hearing loss (Chronic) Medical History: Medical History (Last Updated 02/07/20 @ 15:[address] Refugio Leyva, DPM) Hard of hearing H91.90 Osteoarthritis (arthritis due to wear and tear of joints) M19.90 Allergies amoxicillin Allergy (Verified 02/07/20 10:30) Hives clindamycin Allergy (Verified 02/07/20 10:30) Hives diphenhydramine [From Benadryl] Allergy (Verified 02/07/20 10:30) Swelling Home Medications: Ambulatory Orders Medication Instructions Recorded [place] 650 mg PO DAILY 02/01/20 Ascorbic Acid [Vitamin C] 500 mg PO DAILY 02/01/20 Cartilage/Collagen/Bor/Hyalur 1 ea PO DAILY 02/01/20 [Joint Health Tablet] Fish Oil/Dha/Epa [Fish Oil 1,200 1 ea PO DAILY 02/01/20 mg Fish Oil] Oxycodone HCl/Acetaminophen 1 ea PO Q6H PRN 02/01/20 [Oxycodone-Acetaminophen 5-325] Vitamin E 400 unit PO DAILY 02/01/20 Docusate Sodium [Colace] 100 mg PO BID PRN PRN cap 02/08/20 Doxycycline 100 mg PO BID 02/08/20 Ondansetron [Zofran] 4 mg IV Q8H PRN PRN vial 02/08/20 proCHLORPERazine tablet [Compazine 5 - 10 mg PO Q6H PRN PRN tab 02/08/20 tablet] Surgical History: no surgical history Psychiatric History: No pertinent psych hx BUILDING SUPERINTENDENT History: No pertinent BUILDING SUPERINTENDENT history Lives: With Family - son, daughter in law. Smoking Status: Never smoker Tobacco Use: Non-smoker Alcohol: None Drugs: None - *Family History Paternal History Items: Heart Disease Sibling History Items: Clotting Disorder - Brother., Hypertension - Sister. Review of Systems Constitutional: Denies: Chills, Fever, Weight Change HEENT: Denies: Head Aches, Sinus Congestion, Sinus Drainage Cardiovascular: Denies: Chest Pain, Palpitations Respiratory: Denies: Cough, Shortness of breath at rest, Sputum production Gastrointestinal: Denies: Abdominal Pain, Nausea, Vomiting Genitourinary: Denies: Dysuria Musculoskeletal: Denies: Joint Pain, Joint Tenderness Skin: Denies: Rash, Wounds Neurological: Denies: Numbness, Tingling, Focal weakness Psychiatric: Denies: Anxiety, Depression, Homicidal Ideations, Suicidal Ideations Hematologic/ Lymphatic: Denies: Easy Bruising, Easy Bleeding VTE Information - Inpt Only VTE Present on Admission: No VTE Mechan Device Prophylaxis: Knee High CATALINA Hose VTE Pharm Prophylaxis ordered?: Yes Patient Problems: Active and Suspected Problems (Last Updated 02/07/20 @ 15:[address] Refugio Leyva, DPM) Debility (Acute) - Physical Exam Vitals/I&O's: Vital Signs Temp Pulse Resp BP Pulse Ox 98.3 F 80 16 133/65 H 94 02/08/20 16:55 02/08/20 16:55 02/08/20 16:55 02/08/20 16:55 02/08/20 16:55 Oxygen Delivery Method Room Air Weight: 57.663 kg Body Mass Index (BMI) 23.2 General: Alert, Oriented x3, Cooperative HEENT: Atraumatic, PERRLA, EOMI, Normocephalic Neck: Supple, No JVD, Negative Carotid Bruits Lungs: Clear to auscultation, Normal air movement Cardiovascular: Regular rate, No murmurs Abdomen: Bowel Sounds Present, Soft, Non Tender Extremities: No edema, Capillary Refill Less than 3 Seconds, - - Left lower extremity dressed. Skin: No rashes, No breakdown Musculoskeletal: No Tenderness to Palpation of Joints or Extremities Neurological: Cranial nerves II-XII grossly intact Psych/Mental Status: Normal Affect, Appropriate Laboratory Results 02/08/20 19:43: COVID-19 ([facility]) Pending Current Medications Ascorbic Acid (Vitamin C) 500 mg PO DAILY [facility] Aspirin (Aspirin, Baby) 81 mg PO BIDCM [facility] Stop: 02/22/20 17:01 Docusate Sodium (Colace) 100 mg PO BID PRN PRN PRN Reason: CONSTIPATION Doxycycline Monohydrate (Doxycycline) 100 mg PO BID [facility] Stop: 02/15/20 06:01 Last Admin: 02/08/20 18:49 Dose: 100 mg Documented by: [id number] Ethyl Esters (Lovaza) 1 gm PO DAILY [facility] Ondansetron HCl (Zofran) 4 mg IV Q8H PRN PRN PRN Reason: Nausea Oxycodone HCl (Oxyir) 5 mg PO Q6H PRN PRN Reason: PAIN 1-10 OR FEVER Prochlorperazine Maleate (Compazine Tablet) 5 - 10 mg PO Q6H PRN PRN PRN Reason: Nausea/vomiting Tuberculin PPD (Tubersol, Aplisol, Ppd) 5 tu ID X1 ONE Stop: 02/09/20 10:01 Tuberculin PPD (Tubersol, Aplisol, Ppd) 5 tu ID X1 ONE Stop: 02/16/20 10:01 Vitamin E (Vitamin E) 400 units PO DAILY [facility] Assessment/Plan All Active Problems (Last Updated 02/07/20 @ 15:[address] Refugio Leyva, DPM) Fracture of ankle, trimalleolar, left, closed (Acute) Dislocation of left ankle joint, initial encounter (Acute) Debility (Acute) 79 year old female with below past medical history hospitalized left ankle fracture, underwent ORIF left ankle joint, primary repair deltoid ligament 02/07/[address] Refugio Leyva, admitted to TCU with debility, here for rehabilitation, strengthening, prior to discharge home with family. * Debility - PT/OT. * Pain - Tylenol 1000MG Q6H PRN pain (1-3), Oxycodone 5MG Q4H PRN pain (4-10). * Bowel - Miralax 17GM daily, Senna/colace 2 tablets BID, Dulcolax 10MG CO daily PRN. * Adult immunization - Administer Prevnar 13, Pneumovax 23, Fluzone as appropriate. * DVT prophylaxis - Aspirin 81MG BID thru 02/22/2020. * Vitamin C deficiency - Vitamin C 500MG daily. * Blisters - Doxycycline 100MG BID thru 02/15/2020. * Hyperlipidemia - Lovaza 1GM daily (no evidence Lovaza lowers CV risk, consider stopping Lovaza). * Nausea - Zofran ODT 4MG Q8H PRN. * Vitamin E deficiency - Vitamin E 400IU daily (Vitamin E known to increase CV risk, consider stopping Vitamin E).
[2020-02-08] MEDS: oxyCODONE 5 MG Tablet PO (21:52)
[2020-02-08 22:00] VITALS: RESP 18
[2020-02-09] MEDS: Acetaminophen 500 MG Tablet 1000 MG PO ×2 (02:53→11:18)
[2020-02-09] MEDS: oxyCODONE 5 MG Tablet PO (02:53)
[2020-02-09 02:56] VITALS: BP 149/75; PULSE 91; RESP 18; TEMP 37.3; O2SAT 96
[2020-02-09] MEDS: Ascorbic Acid 500 MG Tablet PO (05:47)
[2020-02-09] MEDS: Doxycycline 100 MG CAPSULE PO ×2 (05:47→16:28)
[2020-02-09] MEDS: Vitamin E 400 UNITS Capsule PO (05:47)
[2020-02-09] MEDS: Omega-3 Acid Ethyl Esters 1 GM Capsule PO (05:47)
[2020-02-09] MEDS: Polyethylene Glycol 3350 17 GM PACKET PO (05:47)
[2020-02-09] MEDS: Senna/Docusate Sodium 1 Tablet 2 TABLET PO (05:47)
[2020-02-09 05:54] LABS: Absolute Lymphocyte Count 0.78 X10^3/uL (0.83-4.51); Absolute Neutrophil Count 4.6 X10^3/uL (2.0-7.7); Basophil# 0.04 X10^3/uL; Basophil% 0.6 % (0-1); Eosinophil# 0.14 X10^3/uL; Eosinophils% 2.1 % (0-5); Hematocrit 30.7 % (37-47); Hemoglobin 9.9 g/dL (12.0-15.0); Lymphocyte # 0.78 X10^3/ul (4.0); Mean Corp Hgb Conc 32.2 g/dL (32-36); Mean Corpuscular Volume 96.2 fL (81-99); Mean Platelet Vol. 9.4 fl (6.2-12.0); Monocyte% 13.8 % (0-10); NRBC Flagged by Analyzer 0 % (0-5); Neutrophil # 4.64 X10^3/uL (2.7-7.7); Neutrophil % 71.2 % (47-70); Platelet Count 297 K/mm3 (150-450); RBC Distribution Width CV 12.9 % (11.6-14.6); RBC Distribution Width SD 44.7 fl (35.1-43.9); Red Blood Count 3.19 M/mm3 (4.2-5.4); White Blood Count 6.5 K/mm3 (4.4-11.0)
[2020-02-09 06:17] LABS: Anion Gap 5 (5-15); BUN 10 mg/dL (7-18); BUN/Creat Ratio 16.8 RATIO (10-20); Chloride 108 mmol/L (98-107); Creatinine, Serum 0.59 mg/dL (0.55-1.02); EST Glomerular Filtration Rate 103 mL/min (>60); Est Glom Filt Rate - Afr Amer 125 mL/min (>60); Estimated Creatinine Clearance 35.49 ml/min; Glucose 102 mg/dL (74-106); Potassium 3.8 mmol/L (3.5-5.1); Sodium Level 139 mmol/L (136-145)
[2020-02-09] MEDS: Aspirin 81 MG TAB.CHEW PO ×2 (08:03→16:28)
[2020-02-09] MEDS: Iron Polysaccharide Complex 150 MG CAPSULE PO (08:54)
[2020-02-09] MEDS: Tuberculin,Purif.prot.deriv. 50 TU/ML Vial 5 ML ID (11:03)
[2020-02-09 13:54] VITALS: TEMP 37.1
--- NOTE | 2020-02-09 14:28 | CHAPLAIN ---
Type of Pastoral Visit _x__ Initial Visit ___ Follow-up Visit ___ On-call Visit ___ General Patient Visit ___ Spiritual Assessment ___ Family Conference ___ Bereavement ___ Rapid Response ___ Code Blue ___ Other (describe below) Pastoral Care Referral From _x__ Patient ___ Family ___ Nurse ___ Physician _x__ Configuration Consultant ___ Medical Imaging Tech ___ Other (describe below) Sacrament/Intervention _x__ Active listening ___ Anointing ___ Pentecostal ___ Bereavement ___ Communion _x__ Gisele exploration ___ _x__ Life review _x__ Prayer ___ Reconciliation ___ Sacrament of Sick _x__ Supportive presence ___ Wedding ___ Other (describe below) Pastoral Comments
--- NOTE | 2020-02-09 16:14 | CASEMGMT ---
Social Work Discussed code status with pt. Pt confirmed full code. MOLST form completed and placed in chart. Rhoda Sarabia MSW INSTANT POWDER SUPERVISOR
[2020-02-10 05:14] VITALS: BP 136/54; PULSE 83; RESP 18; TEMP 36.8; O2SAT 94
[2020-02-10] MEDS: Senna/Docusate Sodium 1 Tablet 2 TABLET PO (05:15)
[2020-02-10] MEDS: Polyethylene Glycol 3350 17 GM PACKET PO (05:15)
[2020-02-10] MEDS: Omega-3 Acid Ethyl Esters 1 GM Capsule PO (05:15)
[2020-02-10] MEDS: Doxycycline 100 MG CAPSULE PO ×2 (05:15→17:45)
[2020-02-10] MEDS: Vitamin E 400 UNITS Capsule PO (05:16)
[2020-02-10] MEDS: Ascorbic Acid 500 MG Tablet PO (05:16)
[2020-02-10] MEDS: Iron Polysaccharide Complex 150 MG CAPSULE PO (08:03)
[2020-02-10] MEDS: Aspirin 81 MG TAB.CHEW PO ×2 (08:03→17:45)
--- NOTE | 2020-02-10 12:30 | PCM.PN.RX ---
<Pravin Jones D - Last Filed: 02/10/20 12:30> Progress Note - Pharmacy Subjective: TCU Admission Objective: Allergies amoxicillin Allergy (Verified 02/07/20 10:30) Hives clindamycin Allergy (Verified 02/07/20 10:30) Hives diphenhydramine [From Benadryl] Allergy (Verified 02/07/20 10:30) Swelling Current Medications Generic Name Dose Route Start Last Admin Trade Name Freq PRN Reason Stop Dose Admin Acetaminophen 1,000 mg 02/08/20 20:42 02/09/20 11:18 Tylenol PO 1,000 mg Q6H PRN PRN Administration Pain Score 1-3/10 Ascorbic Acid 500 mg 02/09/20 06:00 02/10/20 05:16 Vitamin C PO 500 mg DAILY AMADOR Administration Aspirin 81 mg 02/09/20 08:00 02/10/20 08:03 Aspirin, Baby PO 02/22/20 17:01 81 mg BIDCM AMADOR Administration Bisacodyl 10 mg 02/08/20 20:42 Dulcolax RECTAL DAILY PRN Constipation Doxycycline Monohydrate 100 mg 02/08/20 18:00 02/10/20 05:15 Doxycycline PO 02/15/20 06:01 100 mg BID AMADOR Administration Uscol-4-Cbbd Ethyl Esters 1 gm 02/09/20 06:00 02/10/20 05:15 Lovaza PO 1 gm DAILY AMADOR Administration Ondansetron HCl 4 mg 02/08/20 20:41 Zofran Odt PO Q8H PRN PRN NAUSEA Oxycodone HCl 5 mg 02/08/20 20:43 02/09/20 02:53 Oxyir PO 5 mg Q4H PRN PRN Administration Pain Score 4-10/10 Polyethylene Glycol 17 gm 02/09/20 06:00 02/10/20 05:15 Miralax PO 17 gm DAILY AMADOR Administration Polysaccharide Iron Complex 150 mg 02/09/20 08:00 02/10/20 08:03 Ferrex 150 PO 150 mg DAILYCM AMADOR Administration Senna/Docusate Sodium 2 tablet 02/09/20 06:00 02/10/20 05:15 Senokot-S, Annie-Colace PO 2 tablet BID AMADOR Administration Tuberculin PPD 5 tu 02/16/20 10:00 Tubersol, Aplisol, Ppd ID 02/16/20 10:01 X1 ONE Vitamin E 400 units 02/09/20 06:00 02/10/20 05:16 Vitamin E PO 400 units DAILY AMADOR Administration Problem List (Last Updated 02/07/20 @ 15:[address] Refugio Leyva, DPJustino) Debility (Acute) Hearing loss (Chronic) Vital Signs Temp Pulse Resp BP Pulse Ox 98.3 F 83 18 136/54 H 94 02/10/20 05:14 02/10/20 05:14 02/10/20 05:14 02/10/20 05:14 02/10/20 05:14 Oxygen Delivery Method Room Air Weight: 57.663 kg Body Mass Index (BMI) 23.2 Sodium 139 mmol/L (136-145) 02/09/20 05:25 Potassium 3.8 mmol/L (3.5-5.1) 02/09/20 05:25 Chloride 108 mmol/L (98-107) H 02/09/20 05:25 Carbon Dioxide 26.0 mmol/L (21.0-32.0) 02/09/20 05:25 Anion Gap 5 (5-15) 02/09/20 05:25 BUN 10 mg/dL (7-18) 02/09/20 05:25 Creatinine 0.59 mg/dL (0.55-1.02) 02/09/20 05:25 Est GFR (MDRD) Af Amer 125 mL/min (>60) 02/09/20 05:25 Est GFR (MDRD) Non-Af 103 mL/min (>60) 02/09/20 05:25 BUN/Creatinine Ratio 16.8 RATIO (10-20) 02/09/20 05:25 Glucose 102 mg/dL (74-106) 02/09/20 05:25 Assessment/Plan: 1) Pain APAP for pain score 1-3, oxycodone for pain score 4-10. Continue to monitor prn medication use, daily pain scores. 2) ID Doxycycline thru 02/14/ for blisters. Continue to monitor s/s infection. 3) DVT PPx Aspirin 81MG BID thru 02/21. Continue to monitor s/s bleeding/clot. 4) GI Ondansetron prn. Continue to monitor prn medication use, for n/v. 5) Nutrition Fe, omega-3, C, E. Continue to monitor clinically. Psychotropic Medications: None Unnecessary Medications: None Bowel Regimen: 6) Senna/s, PEG, prn bisacodyl. Continue to monitor prn medication use, for constipation/diarrhea. Date of Note:: 02/10/20 - Provider Comments Provider responsibility: Provider responsible to enter orders to implement recommendations <Romulo Vu Chi - Last Filed: 02/10/20 13:21> Progress Note - Pharmacy Subjective: [] Objective: Allergies amoxicillin Allergy (Verified 02/07/20 10:30) Hives clindamycin Allergy (Verified 02/07/20 10:30) Hives diphenhydramine [From Benadryl] Allergy (Verified 02/07/20 10:30) Swelling Current Medications Generic Name Dose Route Start Last Admin Trade Name Freq PRN Reason Stop Dose Admin Acetaminophen 1,000 mg 02/08/20 20:42 02/09/20 11:18 Tylenol PO 1,000 mg Q6H PRN PRN Administration Pain Score 1-3/10 Ascorbic Acid 500 mg 02/09/20 06:00 02/10/20 05:16 Vitamin C PO 500 mg DAILY AMADOR Administration Aspirin 81 mg 02/09/20 08:00 02/10/20 08:03 Aspirin, Baby PO 02/22/20 17:01 81 mg BIDCM AMADOR Administration Bisacodyl 10 mg 02/08/20 20:42 Dulcolax RECTAL DAILY PRN Constipation Doxycycline Monohydrate 100 mg 02/08/20 18:00 02/10/20 05:15 Doxycycline PO 02/15/20 06:01 100 mg BID AMADOR Administration Jthbs-1-Mpyp Ethyl Esters 1 gm 02/09/20 06:00 02/10/20 05:15 Lovaza PO 1 gm DAILY AMADOR Administration Ondansetron HCl 4 mg 02/08/20 20:41 Zofran Odt PO Q8H PRN PRN NAUSEA Oxycodone HCl 5 mg 02/08/20 20:43 02/09/20 02:53 Oxyir PO 5 mg Q4H PRN PRN Administration Pain Score 4-10/10 Polyethylene Glycol 17 gm 02/09/20 06:00 02/10/20 05:15 Miralax PO 17 gm DAILY AMADOR Administration Polysaccharide Iron Complex 150 mg 02/09/20 08:00 02/10/20 08:03 Ferrex 150 PO 150 mg DAILYCM AMADOR Administration Senna/Docusate Sodium 2 tablet 02/09/20 06:00 02/10/20 05:15 Senokot-S, Annie-Colace PO 2 tablet BID AMADOR Administration Tuberculin PPD 5 tu 02/16/20 10:00 Tubersol, Aplisol, Ppd ID 02/16/20 10:01 X1 ONE Vitamin E 400 units 02/09/20 06:00 02/10/20 05:16 Vitamin E PO 400 units DAILY AMADOR Administration Problem List (Last Updated 02/07/20 @ 15:[address] Refugio Leyva, DPM) Debility (Acute) Hearing loss (Chronic) Vital Signs Temp Pulse Resp BP Pulse Ox 98.3 F 83 18 136/54 H 94 02/10/20 05:14 02/10/20 05:14 02/10/20 05:14 02/10/20 05:14 02/10/20 05:14 Oxygen Delivery Method Room Air Weight: 57.663 kg Body Mass Index (BMI) 23.2 Sodium 139 mmol/L (136-145) 02/09/20 05:25 Potassium 3.8 mmol/L (3.5-5.1) 02/09/20 05:25 Chloride 108 mmol/L (98-107) H 02/09/20 05:25 Carbon Dioxide 26.0 mmol/L (21.0-32.0) 02/09/20 05:25 Anion Gap 5 (5-15) 02/09/20 05:25 BUN 10 mg/dL (7-18) 02/09/20 05:25 Creatinine 0.59 mg/dL (0.55-1.02) 02/09/20 05:25 Est GFR (MDRD) Af Amer 125 mL/min (>60) 02/09/20 05:25 Est GFR (MDRD) Non-Af 103 mL/min (>60) 02/09/20 05:25 BUN/Creatinine Ratio 16.8 RATIO (10-20) 02/09/20 05:25 Glucose 102 mg/dL (74-106) 02/09/20 05:25 Assessment/Plan: Psychotropic Medications: Unnecessary Medications: Bowel Regimen: - Provider Comments Provider responsibility: Provider responsible to enter orders to implement recommendations Provider Comments to Recommendations by Pharmacy: Agree
[2020-02-10 14:33] VITALS: BP 129/78; PULSE 78; RESP 16; TEMP 36.1; O2SAT 96
--- NOTE | 2020-02-10 16:46 | NURSING ---
Update provided to family.
[2020-02-11 05:17] VITALS: BP 135/58; PULSE 74; RESP 18; TEMP 36.9; O2SAT 96
[2020-02-11] MEDS: Ascorbic Acid 500 MG Tablet PO (05:19)
[2020-02-11] MEDS: Vitamin E 400 UNITS Capsule PO (05:19)
[2020-02-11] MEDS: Doxycycline 100 MG CAPSULE PO ×2 (05:19→17:52)
[2020-02-11] MEDS: Omega-3 Acid Ethyl Esters 1 GM Capsule PO (05:19)
[2020-02-11] MEDS: Iron Polysaccharide Complex 150 MG CAPSULE PO (07:53)
[2020-02-11] MEDS: Aspirin 81 MG TAB.CHEW PO ×2 (07:53→17:52)
[2020-02-11] MEDS: Ondansetron ODT 4 MG Tablet PO (11:27)
[2020-02-11 11:30] VITALS: PULSE 76; RESP 14; O2SAT 96
[2020-02-11 14:29] VITALS: BP 120/57; TEMP 36.2
[2020-02-12] MEDS: Ascorbic Acid 500 MG Tablet PO (05:18)
[2020-02-12] MEDS: Doxycycline 100 MG CAPSULE PO ×2 (05:18→17:35)
[2020-02-12] MEDS: Vitamin E 400 UNITS Capsule PO (05:18)
[2020-02-12] MEDS: Omega-3 Acid Ethyl Esters 1 GM Capsule PO (05:18)
[2020-02-12 05:19] VITALS: BP 141/60; PULSE 72; RESP 18; TEMP 37.6; O2SAT 95
[2020-02-12] MEDS: Aspirin 81 MG TAB.CHEW PO ×2 (07:31→17:35)
[2020-02-12] MEDS: Iron Polysaccharide Complex 150 MG CAPSULE PO (07:31)
[2020-02-12 15:48] VITALS: BP 112/79; PULSE 73; RESP 14; TEMP 37.2; O2SAT 95
--- NOTE | 2020-02-12 19:29 | NURSING ---
This nurse entered room and told pt that the ordered her a PNA vaccine, She asked this nurse if she is supposed to have one, this nurse explained that yes she was due to have one and the doctor prescribed one for her. Pt then asked if she had to take it, this nurse told her no but it is recommended because she is post surgery and doctors recommend that everyone gets one after a certain age, she replied Ok. This nurse asked her where she would like the vaccine, and pt stated she did not care anywhere was fine. Awhile later this nurse entered pts room and asked her if there was anyone she would like called for a daily update and pt stated You better call my daughter she is very upset that I got that vaccine and told me I didn't need that and I should not have gotten it. This nurse called daughter to clarify and make sure everything was ok and explained what pt had said. Daughter denied telling pt that but stated pt told her that she wanted to refuse the vaccine but staff told her she was not allowed to. This nurse assured daughter that was not the case and explained the conversation and daughter agreed that pt should have vaccine. This nurse talked with pt and explained conversation between nurse and daughter and explained that daughter was ok with her having the vaccine, pt thanked this nurse and just was confused and wanted to make sure the vaccine was ok to get and would not harm her but stated she is fine with vaccine.
[2020-02-13] MEDS: Vitamin E 400 UNITS Capsule PO (05:37)
[2020-02-13] MEDS: Omega-3 Acid Ethyl Esters 1 GM Capsule PO (05:37)
[2020-02-13] MEDS: Doxycycline 100 MG CAPSULE PO ×2 (05:37→18:22)
[2020-02-13 05:39] VITALS: BP 131/72; PULSE 65; RESP 16; TEMP 36.6; O2SAT 97
[2020-02-13] MEDS: Ascorbic Acid 500 MG Tablet PO (06:41)
[2020-02-13] MEDS: Iron Polysaccharide Complex 150 MG CAPSULE PO (08:27)
[2020-02-13] MEDS: Aspirin 81 MG TAB.CHEW PO ×2 (08:27→18:22)
[2020-02-13] MEDS: Ondansetron ODT 4 MG Tablet PO (09:51)
[2020-02-13 12:55] VITALS: PULSE 79; RESP 16; O2SAT 96
[2020-02-13 14:15] VITALS: BP 131/73; PULSE 79; RESP 16; TEMP 36.8; O2SAT 96
--- NOTE | 2020-02-13 15:50 | NURSING ---
Addendum entered by Vicki Bowling 02/13/20 16:19: pt returned from ortho appt, drsg was changed to LLE, keep clean, dry & intact. Reinforce as needed. Ice around knee PRN. F/U in one week for further evaluation. Original Note: daughter taking pt to appointment,will be updated then.
[2020-02-14 04:56] VITALS: BP 112/68; PULSE 70; RESP 16; TEMP 37.2; O2SAT 95
[2020-02-14] MEDS: Doxycycline 100 MG CAPSULE PO ×2 (08:43→20:49)
[2020-02-14] MEDS: Omega-3 Acid Ethyl Esters 1 GM Capsule PO (08:43)
[2020-02-14] MEDS: Iron Polysaccharide Complex 150 MG CAPSULE PO (08:44)
[2020-02-14] MEDS: Ascorbic Acid 500 MG Tablet PO (08:44)
[2020-02-14] MEDS: Aspirin 81 MG TAB.CHEW PO ×2 (08:44→16:21)
[2020-02-14] MEDS: Vitamin E 400 UNITS Capsule PO (08:44)
[2020-02-14] MEDS: Senna/Docusate Sodium 1 Tablet 2 TABLET PO ×2 (08:44→20:49)
--- NOTE | 2020-02-14 12:38 | NURSING ---
Attempted to provide update to family. Voicemail left to return call.
--- NOTE | 2020-02-14 12:44 | NURSING ---
Update provided to family.
[2020-02-14 14:31] VITALS: BP 117/58; PULSE 77; RESP 15; TEMP 36.3; O2SAT 96
[2020-02-15 05:05] VITALS: BP 126/65; PULSE 68; RESP 16; TEMP 36.7; O2SAT 96
[2020-02-15] MEDS: Iron Polysaccharide Complex 150 MG CAPSULE PO (07:45)
[2020-02-15] MEDS: Vitamin E 400 UNITS Capsule PO (07:45)
[2020-02-15] MEDS: Polyethylene Glycol 3350 17 GM PACKET PO (07:45)
[2020-02-15] MEDS: Doxycycline 100 MG CAPSULE PO (07:45)
[2020-02-15] MEDS: Aspirin 81 MG TAB.CHEW PO ×2 (07:46→17:28)
[2020-02-15] MEDS: Senna/Docusate Sodium 1 Tablet 2 TABLET PO ×2 (07:46→19:51)
[2020-02-15] MEDS: Omega-3 Acid Ethyl Esters 1 GM Capsule PO (07:46)
[2020-02-15] MEDS: Ascorbic Acid 500 MG Tablet PO (07:47)
[2020-02-15 09:06] VITALS: PULSE 90; RESP 18; O2SAT 97
--- NOTE | 2020-02-15 09:21 | NURSING ---
Addendum entered by Vicki Bowling 02/15/20 11:58: Pt assisted x1 SPT to toilet from recliner chair. voided clear yellow urine. pt c/o nausea, zofran given earlier, gonna try to eat broth & jello for lunch. will continue to monitor. Original Note: pt c/o she voided early this AM but has not since then, pt concerned. Bladder scanned 151cc. will continue to monitor.
[2020-02-15] MEDS: Ondansetron ODT 4 MG Tablet PO (10:58)
[2020-02-15 11:42] VITALS: TEMP 36.6
[2020-02-15 13:56] VITALS: BP 152/77; PULSE 71; RESP 20; TEMP 37.1; O2SAT 95
--- NOTE | 2020-02-15 14:04 | CASEMGMT ---
Social Work IDT met with patient and son via conference call for care plan meeting. Discussed patient's progress in therapy. Pt is CGA for transfers, hopping 40 ft with FWW at CGA while maintaining NWBS to LLE. Pt is min assist for LE ADLS, set up for UE ADLs, CGA for toileting. Pt is on a regular diet, weight is stable. Pt is out of room isolation 02/26. Explained Medicare benefit. The goal is for pt to return home with and PLOF. has own health issues and cannot physically assist pt at home. Will continue to follow. GAURAV HayesW
[2020-02-15] MEDS: Bisacodyl 10 MG Suppository RECTAL (16:01)
--- NOTE | 2020-02-15 18:10 | NURSING ---
Rectal suppos given with LG nonformed dark stool results. Nausea improved. Pt ate fruit, some bites of yogurt, & noodle soup tonight for supper.
[2020-02-16 06:00] LABS: Absolute Lymphocyte Count 0.79 X10^3/uL (0.83-4.51); Absolute Neutrophil Count 3.9 X10^3/uL (2.0-7.7); Basophil# 0.04 X10^3/uL; Basophil% 0.7 % (0-1); Eosinophils% 5.2 % (0-5); Hematocrit 34.9 % (37-47); Hemoglobin 11.2 g/dL (12.0-15.0); Lymphocyte # 0.79 X10^3/ul (4.0); Lymphocyte % 13.7 % (19-41); Mean Corp Hgb Conc 32.1 g/dL (32-36); Mean Corpuscular Hgb 30.4 pg (27.0-32.0); Mean Corpuscular Volume 94.6 fL (81-99); Mean Platelet Vol. 9.1 fl (6.2-12.0); Monocyte# 0.66 X10^3/uL; Monocyte% 11.5 % (0-10); NRBC Flagged by Analyzer 0 % (0-5); Neutrophil # 3.94 X10^3/uL (2.7-7.7); Neutrophil % 68.6 % (47-70); Platelet Count 367 K/mm3 (150-450); RBC Distribution Width CV 12.9 % (11.6-14.6); RBC Distribution Width SD 44.2 fl (35.1-43.9); Red Blood Count 3.69 M/mm3 (4.2-5.4); White Blood Count 5.8 K/mm3 (4.4-11.0)
[2020-02-16 06:35] LABS: Anion Gap 6 (5-15); BUN 9 mg/dL (7-18); BUN/Creat Ratio 15.6 RATIO (10-20); Calcium,Total 8.5 mg/dL (8.5-10.1); Chloride 108 mmol/L (98-107); Creatinine, Serum 0.58 mg/dL (0.55-1.02); EST Glomerular Filtration Rate 107 mL/min (>60); Est Glom Filt Rate - Afr Amer 129 mL/min (>60); Glucose 88 mg/dL (74-106); Sodium Level 141 mmol/L (136-145)
[2020-02-16 07:44] VITALS: BP 122/55; PULSE 72; RESP 16; TEMP 36.7; O2SAT 97
[2020-02-16] MEDS: Vitamin E 400 UNITS Capsule PO (08:32)
[2020-02-16] MEDS: Ascorbic Acid 500 MG Tablet PO (08:32)
[2020-02-16] MEDS: Iron Polysaccharide Complex 150 MG CAPSULE PO (08:32)
[2020-02-16] MEDS: Senna/Docusate Sodium 1 Tablet 2 TABLET PO ×2 (08:32→21:26)
[2020-02-16] MEDS: Omega-3 Acid Ethyl Esters 1 GM Capsule PO (08:33)
[2020-02-16] MEDS: Aspirin 81 MG TAB.CHEW PO ×2 (08:33→16:37)
[2020-02-16] MEDS: Polyethylene Glycol 3350 17 GM PACKET PO (08:33)
[2020-02-16] MEDS: Tuberculin,Purif.prot.deriv. 50 TU/ML Vial 5 ML ID (09:59)
[2020-02-16 14:18] VITALS: BP 137/79; PULSE 78; RESP 16; TEMP 36.7; O2SAT 95
[2020-02-17 07:30] VITALS: BP 126/57; PULSE 75; RESP 18; TEMP 36.9; O2SAT 98
[2020-02-17] MEDS: Senna/Docusate Sodium 1 Tablet 2 TABLET PO (08:40)
[2020-02-17] MEDS: Iron Polysaccharide Complex 150 MG CAPSULE PO (08:40)
[2020-02-17] MEDS: Vitamin E 400 UNITS Capsule PO (08:40)
[2020-02-17] MEDS: Omega-3 Acid Ethyl Esters 1 GM Capsule PO (08:40)
[2020-02-17] MEDS: Aspirin 81 MG TAB.CHEW PO ×2 (08:40→16:54)
[2020-02-17] MEDS: Polyethylene Glycol 3350 17 GM PACKET PO (08:40)
[2020-02-17] MEDS: Ascorbic Acid 500 MG Tablet PO (08:41)
--- NOTE | 2020-02-17 14:00 | RAD_ITS ---
STUDY: X-RAY - ABDOMEN/PELVIS REASON FOR EXAM: Female, 79 years old. Acute onset of diarrhea today TECHNIQUE: Single AP view of the abdomen / pelvis. COMPARISON: None. FINDINGS: Normal visualized lung bases. There is an unremarkable bowel gas pattern. The visualized liver, spleen and kidneys are grossly normal in size and morphology. Normal soft tissue structures. There are diffuse degenerative changes of the visualized lumbar spine. Osteoarthritis of both hip joints. RAD/Abdomen Single View IMPRESSION: Nonspecific bowel gas pattern. Electronically Signed: West Nicolas, at 15:04 EDT , Service support ,
[2020-02-17 14:46] VITALS: BP 127/76; PULSE 80; RESP 17; TEMP 37.2; O2SAT 96
[2020-02-18 05:52] VITALS: BP 133/63; PULSE 71; TEMP 35.8; O2SAT 98
[2020-02-18] MEDS: Iron Polysaccharide Complex 150 MG CAPSULE PO (09:03)
[2020-02-18] MEDS: Aspirin 81 MG TAB.CHEW PO ×2 (09:03→16:37)
[2020-02-18] MEDS: Ascorbic Acid 500 MG Tablet PO (09:04)
[2020-02-18] MEDS: Vitamin E 400 UNITS Capsule PO (09:04)
[2020-02-18] MEDS: Omega-3 Acid Ethyl Esters 1 GM Capsule PO (09:04)
[2020-02-18 15:09] VITALS: BP 130/72; PULSE 75; RESP 18; TEMP 36.7; O2SAT 95
[2020-02-19 04:58] VITALS: BP 124/58; PULSE 68; RESP 15; TEMP 36.6; O2SAT 98
[2020-02-19] MEDS: Iron Polysaccharide Complex 150 MG CAPSULE PO (08:01)
[2020-02-19] MEDS: Omega-3 Acid Ethyl Esters 1 GM Capsule PO (08:01)
[2020-02-19] MEDS: Aspirin 81 MG TAB.CHEW PO ×2 (08:01→17:00)
[2020-02-19] MEDS: Ascorbic Acid 500 MG Tablet PO (08:03)
[2020-02-19] MEDS: Vitamin E 400 UNITS Capsule PO (08:03)
[2020-02-19 09:44] VITALS: PULSE 81; RESP 16; O2SAT 98
--- NOTE | 2020-02-19 13:24 | NURSING ---
update provided to family.
[2020-02-19 14:11] VITALS: BP 125/49; PULSE 77; RESP 18; TEMP 37; O2SAT 94
[2020-02-19] MEDS: Senna/Docusate Sodium 1 Tablet 2 TABLET PO (20:02)
[2020-02-20 05:59] VITALS: BP 138/66; PULSE 66; RESP 16; TEMP 36.7; O2SAT 96
[2020-02-20] MEDS: Aspirin 81 MG TAB.CHEW PO ×2 (10:09→17:45)
--- NOTE | 2020-02-20 10:11 | NURSING ---
requesting to take 0800 meds at noon today.
[2020-02-20] MEDS: Vitamin E 400 UNITS Capsule PO (11:43)
[2020-02-20] MEDS: Ascorbic Acid 500 MG Tablet PO (11:43)
[2020-02-20] MEDS: Senna/Docusate Sodium 1 Tablet 2 TABLET PO ×2 (11:44→19:45)
[2020-02-20] MEDS: Iron Polysaccharide Complex 150 MG CAPSULE PO (11:44)
[2020-02-20] MEDS: Omega-3 Acid Ethyl Esters 1 GM Capsule PO (11:44)
[2020-02-20 14:44] VITALS: BP 144/74; PULSE 77; RESP 16; TEMP 37.3; O2SAT 94
--- NOTE | 2020-02-20 15:45 | NURSING ---
Addendum entered by Vicki Bowling 02/20/20 17:51: pt returned from appt w/orders and CAM boot. therapy updated. Original Note: pt off unit to Dr Leyva appt via WC and daughter transporting
[2020-02-21 05:59] VITALS: BP 141/52; PULSE 68; RESP 16; TEMP 37; O2SAT 96
--- NOTE | 2020-02-21 06:51 | MDS.RN ---
Information for the mds was obtained from review of the clinical record, interview of resident, staff, and direct observation of resident's care.
[2020-02-21] MEDS: Aspirin 81 MG TAB.CHEW PO ×2 (09:29→17:56)
[2020-02-21] MEDS: Omega-3 Acid Ethyl Esters 1 GM Capsule PO (09:30)
[2020-02-21] MEDS: Ascorbic Acid 500 MG Tablet PO (09:30)
[2020-02-21] MEDS: Iron Polysaccharide Complex 150 MG CAPSULE PO (09:30)
[2020-02-21] MEDS: Vitamin E 400 UNITS Capsule PO (09:31)
[2020-02-21] MEDS: Ondansetron ODT 4 MG Tablet PO (09:37)
--- NOTE | 2020-02-21 10:37 | NURSING ---
P[T WITH SOFTBALL SIZED BRUISE TO INNER RT UPPER ARM. PT STATES IT FROM ASSISTANCE OUT OF HER CAR WHEN SHE RETURNED FROM HER APPT YESTERDAY. PT ALSO EXPRESSED THAT ORTHO DOCTOR PUT THIS NEW BOOT ON AND SHE WAS NOT SURE HOW TO MANAGE IT LIKE THE PREVIOUS SPLINT. NO ONE HURT ME ON PURPOSE PT SITTING IN RECLINER CHAIR, DOING ARM EXERCISES WITH OT AT THIS TIME. FIXED WING AIRCRAFT FLIGHT MECHANIC NOTIFIED.
[2020-02-21 12:58] VITALS: PULSE 80; RESP 16; O2SAT 96
[2020-02-21 14:47] VITALS: BP 120/46; PULSE 68; RESP 16; TEMP 36.8; O2SAT 97
[2020-02-21] MEDS: Senna/Docusate Sodium 1 Tablet 2 TABLET PO (21:09)
[2020-02-22 06:37] VITALS: BP 138/56; PULSE 75; RESP 18; TEMP 36.9; O2SAT 96
[2020-02-22] MEDS: Iron Polysaccharide Complex 150 MG CAPSULE PO (08:28)
[2020-02-22] MEDS: Aspirin 81 MG TAB.CHEW PO ×2 (08:28→16:52)
[2020-02-22] MEDS: Senna/Docusate Sodium 1 Tablet 2 TABLET PO ×2 (08:29→20:11)
[2020-02-22] MEDS: Omega-3 Acid Ethyl Esters 1 GM Capsule PO (08:29)
[2020-02-22] MEDS: Vitamin E 400 UNITS Capsule PO (08:30)
[2020-02-22] MEDS: Ascorbic Acid 500 MG Tablet PO (08:30)
[2020-02-22 14:13] VITALS: BP 145/69; PULSE 71; RESP 17; TEMP 36.7; O2SAT 97
[2020-02-23 05:31] LABS: Absolute Lymphocyte Count 1.11 X10^3/uL (0.83-4.51); Absolute Neutrophil Count 2.9 X10^3/uL (2.0-7.7); Basophil# 0.05 X10^3/uL; Eosinophil# 0.36 X10^3/uL; Eosinophils% 7.3 % (0-5); Hematocrit 34.4 % (37-47); Lymphocyte # 1.11 X10^3/ul (4.0); Lymphocyte % 22.4 % (19-41); Mean Corpuscular Hgb 30.4 pg (27.0-32.0); Mean Platelet Vol. 9.3 fl (6.2-12.0); Monocyte# 0.56 X10^3/uL; Monocyte% 11.3 % (0-10); NRBC Flagged by Analyzer 0 % (0-5); Neutrophil # 2.87 X10^3/uL (2.7-7.7); Neutrophil % 57.8 % (47-70); Platelet Count 281 K/mm3 (150-450); RBC Distribution Width CV 13.5 % (11.6-14.6); RBC Distribution Width SD 46.8 fl (35.1-43.9); Red Blood Count 3.62 M/mm3 (4.2-5.4)
[2020-02-23 05:51] LABS: Anion Gap 4 (5-15); BUN 14 mg/dL (7-18); BUN/Creat Ratio 23.1 RATIO (10-20); Calcium,Total 8.4 mg/dL (8.5-10.1); Chloride 112 mmol/L (98-107); EST Glomerular Filtration Rate 101 mL/min (>60); Est Glom Filt Rate - Afr Amer 122 mL/min (>60); Estimated Creatinine Clearance 34.82 ml/min; Glucose 87 mg/dL (74-106); Potassium 4.1 mmol/L (3.5-5.1); Sodium Level 142 mmol/L (136-145)
[2020-02-23 06:58] VITALS: BP 125/57; PULSE 66; RESP 18; TEMP 36.8; O2SAT 100
[2020-02-23] MEDS: Omega-3 Acid Ethyl Esters 1 GM Capsule PO (08:24)
[2020-02-23] MEDS: Iron Polysaccharide Complex 150 MG CAPSULE PO (08:24)
[2020-02-23] MEDS: Vitamin E 400 UNITS Capsule PO (08:24)
[2020-02-23] MEDS: Ascorbic Acid 500 MG Tablet PO (08:25)
[2020-02-23] MEDS: Senna/Docusate Sodium 1 Tablet 2 TABLET PO (08:25)
[2020-02-23 14:49] VITALS: BP 125/52; PULSE 70; RESP 16; TEMP 36.4; O2SAT 96
[2020-02-24 06:55] VITALS: BP 138/57; PULSE 69; RESP 18; TEMP 36.9; O2SAT 94
[2020-02-24] MEDS: Senna/Docusate Sodium 1 Tablet 2 TABLET PO ×2 (08:07→20:23)
[2020-02-24] MEDS: Ascorbic Acid 500 MG Tablet PO (08:07)
[2020-02-24] MEDS: Omega-3 Acid Ethyl Esters 1 GM Capsule PO (08:07)
[2020-02-24] MEDS: Iron Polysaccharide Complex 150 MG CAPSULE PO (08:07)
[2020-02-24] MEDS: Vitamin E 400 UNITS Capsule PO (08:08)
[2020-02-24 16:00] VITALS: BP 149/74; PULSE 74; RESP 16; TEMP 36.7; O2SAT 95
[2020-02-25 04:00] VITALS: BP 116/56; PULSE 67; RESP 18; TEMP 36.1
[2020-02-25] MEDS: Iron Polysaccharide Complex 150 MG CAPSULE PO (08:56)
[2020-02-25] MEDS: Ascorbic Acid 500 MG Tablet PO (08:56)
[2020-02-25] MEDS: Vitamin E 400 UNITS Capsule PO (08:56)
[2020-02-25] MEDS: Senna/Docusate Sodium 1 Tablet 2 TABLET PO ×2 (08:56→19:48)
[2020-02-25] MEDS: Omega-3 Acid Ethyl Esters 1 GM Capsule PO (08:56)
--- NOTE | 2020-02-25 09:31 | NURSING ---
removed CAM boot from 900 to 0910 this AM per order. pt resting in recliner chair, legs elevated. call light in reach.
[2020-02-25 09:46] VITALS: RESP 16; O2SAT 96
[2020-02-25 14:57] VITALS: BP 132/59; PULSE 71; RESP 18; TEMP 36.7; O2SAT 95
[2020-02-26 07:10] VITALS: BP 131/64; PULSE 71; RESP 18; TEMP 36.4; O2SAT 94
[2020-02-26] MEDS: Ascorbic Acid 500 MG Tablet PO (09:45)
[2020-02-26] MEDS: Vitamin E 400 UNITS Capsule PO (09:45)
[2020-02-26] MEDS: Iron Polysaccharide Complex 150 MG CAPSULE PO (09:45)
[2020-02-26] MEDS: Omega-3 Acid Ethyl Esters 1 GM Capsule PO (09:45)
[2020-02-26] MEDS: Senna/Docusate Sodium 1 Tablet 2 TABLET PO ×2 (09:46→20:17)
[2020-02-26 14:48] VITALS: BP 151/75; PULSE 80; RESP 14; TEMP 36.7; O2SAT 96
[2020-02-27 06:15] VITALS: BP 142/57; PULSE 67; RESP 17; TEMP 36.6; O2SAT 100
[2020-02-27] MEDS: Iron Polysaccharide Complex 150 MG CAPSULE PO (08:49)
[2020-02-27] MEDS: Senna/Docusate Sodium 1 Tablet 2 TABLET PO ×2 (08:49→21:13)
[2020-02-27] MEDS: Omega-3 Acid Ethyl Esters 1 GM Capsule PO (08:49)
[2020-02-27] MEDS: Vitamin E 400 UNITS Capsule PO (08:49)
[2020-02-27] MEDS: Ascorbic Acid 500 MG Tablet PO (08:50)
[2020-02-27 14:40] VITALS: BP 157/82; PULSE 77; RESP 16; TEMP 36.7; O2SAT 97
[2020-02-28 04:15] VITALS: BP 132/56; PULSE 59; RESP 16; TEMP 36.8; O2SAT 94
[2020-02-28] MEDS: Omega-3 Acid Ethyl Esters 1 GM Capsule PO (08:23)
[2020-02-28] MEDS: Senna/Docusate Sodium 1 Tablet 2 TABLET PO (08:23)
[2020-02-28] MEDS: Iron Polysaccharide Complex 150 MG CAPSULE PO (08:23)
[2020-02-28] MEDS: Vitamin E 400 UNITS Capsule PO (08:23)
[2020-02-28] MEDS: Ascorbic Acid 500 MG Tablet PO (08:24)
[2020-02-28 13:26] VITALS: BP 142/66; PULSE 77; RESP 17; TEMP 36.6; O2SAT 99
--- NOTE | 2020-02-28 14:52 | NURSING ---
Addendum entered by Charlene Rosenberg 02/28/20 15:22: This RN called into Dr. Refugio Leyva's office and spoke with nurse Mondragon. Verbal orders for aspirin 81mg and Doxycycline 100mg given. Per pharmacy Dr. Vu must verify orders and they need to be ordered under his name. Dr to be notified of interaction between ferrex and doxycycline prior to giving. Original Note: This RN called retail pharmacy and notified staff that Dr. Refugio Leyva's office was going to send over prescriptions for patient, for inpatient use. Notified that it had been sent to [facility] retail and that they cannot transfer prescription. They state this RN has to call Dr. Leyva's office and receive telephone order and then it has to be called to Dr. Vu and he has to order for Dr. Refugio Leyva.
--- NOTE | 2020-02-28 16:06 | CASEMGMT ---
Social Work NIKOS met with pt in room as pt is requesting to return home. D/C date set for tomorrow 02/29/20. Pt will be returning home with her . Daughter lives local and is available to assist and transport as needed. Pt is agreeable to recommendations for home health PT/OT and has no preference on company used. Pt has needed DME. NIKOS spoke with pt dgt who is agreeable to d/c and will transport pt home after 2pm on 02/29/20. Referral made to Kendra at [facility] and they are able to accept for PT/OT. No further discharge needs. Plan: D/C home 02/29/[address] [facility] PT/OT LISA Galicia
--- NOTE | 2020-02-28 16:47 | CASEMGMT ---
BIMS and PHQ9 interviews completed on this date for MDS assessment. LISA Galicia
[2020-02-28] MEDS: Doxycycline 100 MG CAPSULE PO (17:46)
[2020-02-28] MEDS: Aspirin 81 MG TAB.CHEW PO (17:46)
--- NOTE | 2020-02-28 20:40 | DCINST_ITS ---
- Discharge Diagnoses Current Active Problems: Current Active and Chronic Problems (Last Updated 02/07/20 @ 15:[address] Refugio Leyva DPJustino) Debility (Acute) Hearing loss (Chronic) You will use the following diet at home:: No restrictions, Regular Your food should be the consistency of: Regular Your liquids should be the consistency of: Regular/Thin Discharge Activity: Return to Normal Activity, May Shower, Use Walker Weight Bearing Status: No weight bearing - Left lower extremity. Call your doctor if you observe: Fever of 101 or Higher, Inability to urinate, Inability to have a bowel movement, Shortness of breath, Chest pain, Uncontrolled pain Allergies/Adverse Reactions: Allergies amoxicillin Allergy (Verified 02/07/20 10:30) Hives clindamycin Allergy (Verified 02/07/20 10:30) Hives diphenhydramine [From Benadryl] Allergy (Verified 02/07/20 10:30) Swelling Medications to take at Discharge [place] 650 mg PO DAILY 02/01/20 Ascorbic Acid [Vitamin C] 500 mg PO DAILY 02/01/20 Cartilage/Collagen/Bor/Hyalur [Joint Health Tablet] 1 ea PO DAILY 02/01/20 Fish Oil/Dha/Epa [Fish Oil 1,200 mg Fish Oil] 1 ea PO DAILY 02/01/20 Vitamin E 400 unit PO DAILY 02/01/20 Doxycycline 100 mg PO BID 02/08/20 Acetaminophen [Tylenol] 1,000 mg PO Q6H PRN PRN tablet 02/28/20 Aspirin [Aspirin, Baby] 81 mg PO BIDCM #60 tab.chew 02/28/20 Doxycycline 100 mg PO BID #60 cap 02/28/20 The following prescriptions were given: Aspirin [Aspirin, Baby] 81 mg PO BIDCM #60 tab.chew Transmission Status: Pending to [id number] Doxycycline 100 mg PO BID #60 cap Transmission Status: Pending to [id number] Primary Care Physician: Janis Leal NP-C [Primary Care Provider] - Please follow up with your Primary Care Physician in: 1 week. Test Results: Test results from this visit will be discussed in further detail at your follow- up appointment, if applicable. Please Follow Up With: Refugio Leyva MD When: [phone] Please Follow Up With: [facility] When: They will call you to set a time to come to your home Proposed Discharge Date: 02/29/20
[2020-02-28 20:42] VITALS: BP 133/68; PULSE 72; RESP 16; TEMP 36.4; O2SAT 96
--- NOTE | 2020-02-28 20:42 | PCM.DC.SUM ---
Discharge Date and Diagnosis - Problem List Patient Problems: Active and Suspected Problems (Last Updated 02/07/20 @ 15:[address] Refugio Leyva DPM) Debility (Acute) Date of Admission: 02/08/20 Date of Discharge: 02/29/20 - Primary Discharge Diagnosis Acute Problems: Active Problems (Last Updated 02/07/20 @ 15:[address] Refugio Leyva DPM) Debility (Acute) - Secondary Discharge Diagnosis Chronic Problems: Chronic Problems (Last Updated 02/07/20 @ 15:[address] Refugio Leyva DPM) Hearing loss (Chronic) Hospital Course and Treatment Imaging Results: 02/09/20 06:16 Diet: Regular Diet Is pt able to select menu?: Yes Clinical Impression(s) from Imaging Studies KUB X-Ray 02/17/20 14:00 IMPRESSION: Nonspecific bowel gas pattern. Electronically Signed: West Nicolas, at 15:04 EDT , Service support , Operations: None, - - left ankle trimalleolar open reduction with internal fixation Procedures: None Summary of Care Provided: The patient is a 80 year old Female with below past medical history hospitalized left ankle fracture, underwent ORIF left ankle joint, primary repair deltoid ligament 02/07/[address] Refugio Leyva, admitted to TCU with debility, here for rehabilitation, strengthening, prior to discharge home with family. Discharge home with , [facility] for PT/OT. Patient Problems: Active and Suspected Problems (Last Updated 02/07/20 @ 15:[address] Refugio Leyva, JENNIFER) Debility (Acute) - Physical Exam Vitals/I&O's: Vital Signs Temp Pulse Resp BP Pulse Ox 97.9 F 77 17 142/66 H 99 02/28/20 13:26 02/28/20 13:26 02/28/20 13:26 02/28/20 13:26 02/28/20 13:26 Oxygen Delivery Method Room Air Weight: 51.057 kg Body Mass Index (BMI) 23.2 Intake and Output for Last 24 Hours 02/26/20 02/27/20 02/28/20 23:59 23:59 23:59 Intake Total 660 / 660 720 / 720 480 / 480 Balance 660 / 660 720 / 720 480 / 480 Current Medications Acetaminophen (Tylenol) 1,000 mg PO Q6H PRN PRN PRN Reason: Pain Score 1-3/10 Last Admin: 02/09/20 11:18 Dose: 1,000 mg Documented by: Ascorbic Acid (Vitamin C) 500 mg PO DAILY@0800 [facility] Last Admin: 02/28/20 08:24 Dose: 500 mg Documented by: [facility] ([facility], [facility]) [facility] Last Admin: 02/28/20 17:46 Dose: 81 mg Documented by: Bisacodyl (Dulcolax) 10 mg RECTAL DAILY PRN PRN Reason: Constipation Last Admin: 02/15/20 16:01 Dose: 10 mg Documented by: Doxycycline Monohydrate (Doxycycline) 100 mg PO BID [facility] Last Admin: 02/28/20 17:46 Dose: 100 mg Documented by: [id number] Ethyl Esters (Lovaza) 1 gm PO DAILY@0800 [facility] Last Admin: 02/28/20 08:23 Dose: 1 gm Documented by: Ondansetron HCl (Zofran Odt) 4 mg PO Q8H PRN PRN PRN Reason: NAUSEA Last Admin: 02/21/20 09:37 Dose: 4 mg Documented by: Oxycodone HCl (Oxyir) 5 mg PO Q4H PRN PRN PRN Reason: Pain Score 4-10/10 Last Admin: 02/09/20 02:53 Dose: 5 mg Documented by: Polyethylene Glycol (Miralax) 17 gm PO DAILY@0800 [facility] Last Admin: 02/28/20 08:24 Dose: Not Given Documented by: Senna/Docusate Sodium (Senokot-S, Annie-Colace) 2 tablet PO 0800,1999 [facility] Last Admin: 02/28/20 08:23 Dose: 1 tablet Documented by: Vitamin E (Vitamin E) 400 units PO DAILY@0800 [facility] Last Admin: 02/28/20 08:23 Dose: 400 units Documented by: Discharge Diet: No Restrictions Discharge Activity: Return to Normal Activity, May Shower, Use Walker Weight Bearing Status: No weight bearing - Left lower extremity. Call your doctor if you observe: Fever of 101 or Higher, Inability to urinate, Inability to have a bowel movement, Shortness of breath, Chest pain, Uncontrolled pain Home Medications: Medications to take at Discharge [place] 650 mg PO DAILY 02/01/20 Ascorbic Acid [Vitamin C] 500 mg PO DAILY 02/01/20 Cartilage/Collagen/Bor/Hyalur [Joint Health Tablet] 1 ea PO DAILY 02/01/20 Fish Oil/Dha/Epa [Fish Oil 1,200 mg Fish Oil] 1 ea PO DAILY 02/01/20 Vitamin E 400 unit PO DAILY 02/01/20 Doxycycline 100 mg PO BID 02/08/20 Acetaminophen [Tylenol] 1,000 mg PO Q6H PRN PRN tablet 02/28/20 Aspirin [Aspirin, Baby] 81 mg PO BIDCM #60 tab.chew 02/28/20 Doxycycline 100 mg PO BID #60 cap 02/28/20 Following Prescrptions Were Given to Patient: Aspirin [Aspirin, Baby] 81 mg PO BIDCM #60 tab.chew Transmission Status: [id number] Doxycycline 100 mg PO BID #60 cap Transmission Status: [id number] Primary Care Physician: Janis Leal NP-C [Primary Care Provider] - Please follow up with your Primary Care Physician in: 1 week. Please Follow Up With: Refugio Leyva MD When: [phone] Please Follow Up With: [facility] When: They will call you to set a time to come to your home Disposition: Home with Home Health Minutes spent on discharge:: 35 Patient Condition:: Stable Medical Necessity - Tobacco Use Smoking Status: Never smoker Tobacco Use: Non-smoker Meaningful Use Info Meaningful Use Diagnoses (Choose all that apply): None applicable
[2020-02-29 04:00] VITALS: BP 128/49; PULSE 67; RESP 16; TEMP 36.5; O2SAT 98
[2020-02-29] MEDS: Doxycycline 100 MG CAPSULE PO (06:14)
[2020-02-29 10:00] VITALS: PULSE 97; RESP 16; O2SAT 98
== END 2020-02-29 15:37 | disposition home health service (06) | DRG 561 ==
PROVIDERS: Admitting Provider Family Medicine Geriatric Medicine; PCP Nurse Practitioner Primary Care; Referring Provider Family Medicine Geriatric Medicine; Visit Provider Family Medicine Geriatric Medicine
DX: S82.852D Displaced trimalleolar fracture of left lower leg, subsequent encounter for closed fracture with routine healing (principal); W50.0XXD Accidental hit or strike by another person, subsequent encounter; M19.90 Unspecified osteoarthritis, unspecified site; E78.5 Hyperlipidemia, unspecified; H91.90 Unspecified hearing loss, unspecified ear; Z23 Encounter for immunization
CPT/HCPCS: 36415; 74018; 80048; 85025; 87635; 97110; 97116; 97162; 97166; 97530; 97535; 97802; G0009; G2023; 90670; U0003

== ENCOUNTER 2024-01-05 14:50 | Inpatient (IN) | payer MEDICARE, OTHER, SELFPAY ==
[2024-01-05 15:00] VITALS: BP 117/63; PULSE 71; RESP 16; TEMP 36.6; O2SAT 93
[2024-01-05 15:13] VITALS: PULSE 71; RESP 16; O2SAT 93
[2024-01-05 15:17] VITALS: BMI 18.3
[2024-01-05 15:18] VITALS: BMI 18.8
[2024-01-05 15:30] VITALS: BMI 18.8
[2024-01-05] MEDS: Ondansetron ODT 4 MG Tablet PO (16:58)
--- NOTE | 2024-01-05 19:40 | HP.PCM_ITS ---
HPI - General General Date of Admission: 01/05/24 Date of Service: 01/05/24 Chief Complaint: Here for rehabilitation. HPI Narrative GEOFF WILSON, is a 83 Female who presents with followin01/02/2024 Admit to [facility] with ongoing nausea, vomiting, lightheadedness. Patient's recently . Daughter noticed cognitive impairment since of . Patient not eating well. Blood tests showed normal WBC, no anemia. Patient hemodynamically stable. Troponin negative. Vitamin B12 387. TSH was normal, UA was negative for infection. Chest X-ray normal. CT head showed left cerebellar lesion concerning for neoplastic process, surrounding vasogenic edema and destruction of inner table of the left occipital bone was seen. MRI of the brain was completed that showed left posterior cranial fossa enhancing mass measuring 2 to 3cm appears extra-axial and is favored to represent a meningioma. CT of abdomen pelvis showed small bowel feces, no evidence of obstruction. No fever, blood pressure high at 174/81, on room air. Neurosurgery recommended no acute surgical intervention. Neurosurgery feels meningioma is benign. Neurosurgery recommends f/u in 2-3 weeks for reimaging and reevaluation of symptoms. Concern for underlying dementia, with recent of , may have been compensating for his 's cognitive decline. Nausea/vomiting resolved. PT/OT recommended SNF. 01/05/2024 Admit to TCU with debility, here for rehabilitation, strengthening, prior to discharge home with family. [facility] Medical History (Updated 01/05/24 @ 19:[address] Romulo Vu MD) Hard of hearing Osteoarthritis (arthritis due to wear and tear of joints) Home Medications alfalfa 650 mg tablet 650 mg PO DAILY supplement 02/01/20 [History Last Taken Unknown] cartilage 40 mg-collagen II 10 mg-boron 5 mg-hyaluronate 3.3 mg tablet 1 ea PO DAILY supplement 02/01/20 [History Last Taken Unknown] fish oil-dha-epa 1,200 mg-144 mg-216 mg capsule 1 ea PO DAILY supplement 02/01/20 [History Last Taken Unknown] vitamin E 268 mg (400 unit) capsule 400 unit PO DAILY supplement 02/01/20 [History Last Taken Unknown] Allergy/AdvReac Type Severity Reaction Status Date / Time amoxicillin Allergy Hives Verified 02/07/20 10:30 clindamycin Allergy Hives Verified 02/07/20 10:30 diphenhydramine Allergy Swelling Verified 02/07/20 10:30 [From Benadryl] Family History (Updated 01/05/24 @ 19:[address] Romulo Vu MD) Father Heart disease Brother Clotting disorder Sister Hypertension Surgical History no surgical history no surgical history Social History (Updated 01/05/24 @ 19:[address] Romulo Vu MD) household members: family and children Smoking Status: Never smoker alcohol intake: never substance use type: does not use ROS Constitutional Constitutional: Denies chills, fever(s) or weight gain ENT HEENT: Denies headache(s), nasal congestion or nasal discharge Cardiovascular Cardiovascular: Denies chest pain or palpitations Respiratory/Chest Respiratory/Chest: Denies cough, excessive phlegm production or shortness of breath with exertion Gastrointestinal Gastrointestinal: Reports nausea; Denies abdominal pain or vomiting Genitourinary Genitourinary: Denies dysuria Musculoskeletal Musculoskeletal: Denies joint pain or joint swelling Integumentary Integumentary: Denies rash or wounds Neurologic Neurologic: Denies focal weakness, numbness or tingling Psychiatric Psychiatric: Denies anxiety, auditory hallucinations, depression, homicidal ideation or suicidal ideation Vital Signs Vital Signs Vital Signs: 01/05/24 15:00 01/05/24 15:13 Temperature 97.9 F Temperature Source Temporal Pulse Rate 71 71 Pulse Rhythm Regular Pulse Strength Normal (2+) Respiratory Rate 16 16 Respiratory Effort Normal Non-Labored Respiratory Depth Normal Respiratory Pattern Normal Blood Pressure 117/63 Blood Pressure Mean 81 Blood Pressure Source Monitor Blood Pressure Position Sitting Blood Pressure Location Right Arm Pulse Ox 93 93 Oxygen Delivery Method Room Air Room Air Weight Weight: 45.269 kg Body Mass Index (BMI) 18.8 Physical Exam Const alert General Appearance: cooperative HEENT normocephalic Eyes PERRL and EOMs intact bilaterally Neck supple, no JVD and no carotid bruits Resp normal respiratory effort, normal air movement and clear to auscultation bilaterally Cardio regular rate and regular rhythm GI normal to inspection, nondistended, normoactive bowel sounds, non-tender and non-distended Extremity normal capillary refill General Extremity: Negative for edema Skin no rashes or lesions noted General Skin Exam: no breakdown Psych affect normal Appearance: appropriate Assessment & Plan Assessment/Plan (1) Debility: (2) Nausea & vomiting: (3) Lightheadedness: (4) Meningioma: (5) Cognitive decline: (6) Hearing loss: (7) Osteoarthritis (arthritis due to wear and tear of joints): PLAN: Plan 83 year old female with below past medical history hospitalized for nausea/vomiting, lightheadedness, complicated by meningioma, cognitive decline, admitted to TCU with debility, here for rehabilitation, strengthening, prior to discharge home with family. * Debility - PT/OT. * Cognition - ST. * Pain - Tylenol 1000mg q6 prn pain (1-10). * Bowel - senna/colace 1 tablet bid prn. * Adult immunization - Administer pneumonia vaccine, covid vaccine, flu vaccine as appropriate. * DVT prophylaxis - Monitor. * Nausea - Zofran 4mg q4 prn. * Vitamin E deficiency - Vitamin E 400IU daily.
--- NOTE | 2024-01-05 22:48 | NURSING ---
Patient very tearful at times this evening. She lost her approximately a month ago and states she is lonely. Provided emotional support. Will continue to monitor for s/sx depression.
[2024-01-06 05:51] LABS: Absolute Lymphocyte Count 1.47 X10^3/uL (0.83-4.51); Absolute Neutrophil Count 2.6 X10^3/uL (2.0-7.7); Basophil# 0.06 X10^3/uL; Basophil% 1.1 % (0-1); Eosinophil# 0.23 X10^3/uL; Eosinophils% 4.3 % (0-5); Hematocrit 41.1 % (37-47); Hemoglobin 13.7 g/dL (12.0-15.0); Lymphocyte # 1.47 X10^3/ul (0.83-4.51); Lymphocyte % 27.8 % (19-41); Mean Corp Hgb Conc 33.3 g/dL (32-36); Mean Corpuscular Hgb 31.6 pg (27.0-32.0); Mean Corpuscular Volume 94.7 fL (81-99); Mean Platelet Vol. 9.5 fl (6.2-12.0); Monocyte# 0.87 X10^3/uL; Monocyte% 16.4 % (0-10); NRBC Flagged by Analyzer 0 % (0-5); Neutrophil % 49.3 % (47-70); Platelet Count 195 K/mm3 (150-450); RBC Distribution Width CV 13.2 % (11.6-14.6); Red Blood Count 4.34 M/mm3 (4.2-5.4); White Blood Count 5.3 K/mm3 (4.4-11.0)
[2024-01-06 06:17] LABS: Anion Gap 3 (5-15); BUN 24 mg/dL (7-18); BUN/Creat Ratio 28.9 RATIO (10-20); Calcium,Total 8.5 mg/dL (8.5-10.1); Chloride 108 mmol/L (98-107); Creatinine, Serum 0.83 mg/dL (0.55-1.02); EST Glomerular Filtration Rate 70 mL/min (>60); Est Glom Filt Rate - Afr Amer 84 mL/min (>60); Estimated Creatinine Clearance 36.06 ml/min; Glucose 85 mg/dL (74-106); Potassium 4.5 mmol/L (3.5-5.1); Sodium Level 141 mmol/L (136-145)
[2024-01-06] MEDS: Ondansetron ODT 4 MG Tablet PO ×4 (07:36→20:45)
[2024-01-06] MEDS: Vitamin E 400 UNITS Capsule PO (07:36)
[2024-01-06] MEDS: Tuberculin,Purif.prot.deriv. 50 TU/ML Vial 0.1 ML ID (09:25)
--- NOTE | 2024-01-06 10:36 | PCM.PN.DRR ---
Documented by User: Victorina Liaoder 01/06/24 10:43 TCU RX Drug Regimen Review Subjective/Objective Subjective/Objective: Subjective: TCU Admission. 83 YOF presented with nausea, vomiting, lightheadedness. Hospitalized for nausea/vomiting, lightheadedness, complicated by meningioma, cognitive decline. Admitted to TCU with debility for strengthening and rehabilitation. Objective: Allergies amoxicillin Allergy (Verified 02/07/20 10:30) Hives clindamycin Allergy (Verified 02/07/20 10:30) Hives diphenhydramine [From Benadryl] Allergy (Verified 02/07/20 10:30) Swelling Current Medications Generic Name Dose Route Start Last Admin Trade Name Freq PRN Reason Stop Dose Admin Acetaminophen 1,000 mg 01/05/24 19:56 Acetaminophen 500 Mg Tablet PO Q6H PRN PRN Pain Score 1-10 Ondansetron HCl 4 mg 01/05/24 16:45 01/06/24 07:36 Ondansetron Odt 4 Mg Tablet PO 4 mg Q4H PRN PRN Administration NAUSEA/VOMITING Senna/Docusate Sodium 1 tablet 01/05/24 19:56 Senna/Docusate Sodium 1 Tablet PO BID PRN Constipation Tuberculin PPD 0.1 ml 01/13/24 10:00 Tuberculin,Purif.Prot.Deriv. 50 Tu/Ml Vial ID 01/13/24 10:01 X1 ONE Vitamin E 400 units 01/06/24 08:00 01/06/24 07:36 Vitamin E 400 Units Capsule PO 400 units DAILYCM AMADOR Administration Problem List (Updated 01/05/24 @ 19:[address] Romulo Vu MD) Osteoarthritis (arthritis due to wear and tear of joints) (Acute) Cognitive decline (Acute) Meningioma (Acute) Lightheadedness (Acute) Nausea & vomiting (Acute) Hearing loss (Chronic) Debility (Acute) Vital Signs Temp Pulse Resp BP Pulse Ox O2 Del Method 97.9 F 71 16 117/63 93 Room Air 01/05/24 15:00 01/05/24 15:13 01/05/24 15:13 01/05/24 15:00 01/05/24 15:13 01/05/24 15:13 Oxygen Delivery Method Room Air Weight: 45.269 kg Body Mass Index (BMI) 18.8 Sodium 141 mmol/L (136-145) 05/08/24 05:22 Potassium 4.5 mmol/L (3.5-5.1) 01/06/24 05:22 Chloride 108 mmol/L (98-107) H 01/06/24 05:22 Carbon Dioxide 30.0 mmol/L (21.0-32.0) 01/06/24 05:22 Anion Gap 3 (5-15) L 01/06/24 05:22 BUN 24 mg/dL (7-18) H 01/06/24 05:22 Creatinine 0.83 mg/dL (0.55-1.02) 01/06/24 05:22 Est GFR (MDRD) Af Amer 84 mL/min (>60) 01/06/24 05:22 Est GFR (MDRD) Non-Af 70 mL/min (>60) 01/06/24 05:22 BUN/Creatinine Ratio 28.9 RATIO (10-20) H 01/06/24 05:22 Glucose 85 mg/dL (74-106) 01/06/24 05:22 Assessment/Plan: 1. Pain: acetaminophen 1000mg PO Q6H PRN pain 1-10. Resident has not had any doses. Please continue to monitor for increased pain and PRN usage. 2. Bowel: senna/docusate 1T PO BID PRN constipation. Resident has not had any doses. Please continue to monitor for constipation and PRN usage. No documented bowel movements so far. 3. Nausea: ondansetron 4mg PO Q4H PRN nausea/vomiting. Resident has had 2 doses. Please continue to monitor for nausea, vomiting, PRN usage and drowsiness. 4. Vitamin E deficiency: vitamin E 400units PO daily. Please continue to monitor. Assessment/Plan for indications treated with psychotropic medications: None Medical chart and medication regimen reviewed. The following medication irregularities or issues were identified: None Date Date of Note:: 01/06/24 Documented by User: Dr. Romulo Vu MD 01/06/24 11:38 TCU RX Drug Regimen Review Provider Comments Provider responsibility Provider Comments to Recommendations by Pharmacy: Agree
--- NOTE | 2024-01-06 10:55 | NURSING ---
Patient calls this nurse in and reports she suddenly feels very dizzy and shaky and her mouth went dry. She reports this is how she felt when brought into the hospital. BP 130/54 HR 62 96% on RA. Patient requests cool cloth for face and Lorri-sanjana, which is provided. Patient encouraged to rest and not get up while feeling dizzy. Patient denies further needs at this time.
--- NOTE | 2024-01-06 12:31 | NURSING ---
Licensed Pesticide Applicator Note; Activity Asset: Complete
[2024-01-06 16:00] VITALS: BP 143/61; PULSE 57; RESP 14; TEMP 36.3; O2SAT 96
[2024-01-06 20:47] VITALS: PULSE 63; RESP 16; O2SAT 95
[2024-01-07] MEDS: Vitamin E 400 UNITS Capsule PO (08:28)
[2024-01-07] MEDS: Ondansetron ODT 4 MG Tablet PO ×3 (08:31→16:57)
--- NOTE | 2024-01-07 09:28 | NURSING ---
Called Dr. Gale's office, they couldn't see patient until next October. Called Dr. Mario Robles's office, they could see patient but want to schedule with the patient. Asked them to call daughter, provided them dtr's number. Updated patient and daughter. Dr. Robles's office requested a referral be faxed to them at #[phone], left note updating Dr. Vu.
--- NOTE | 2024-01-07 18:00 | CASEMGMT ---
Social Work - TCU Admission Assessment Met with patient, daughter, and son-in-law. Introduced to self and role. Patient agreeable to have family in room and states daughter has been helping patient answer questions when patient is unsure. Family present for all of SW interview, though stepped out of room at this bond underwriter's request so as to allow a few moments of private conversation. Addressed abuse/safety/trauma questions in private. Admission assessment completed. BIMS score a 14/15. Patient is a full code, and at this time goal is to return home, though uncertain if will be able to. Educated patient has Medicare for coverage, and there will be a care plan meeting next week to discuss progress in treatment and continued stay. Per daughter, believes there is a POAHC/Living Will in place and will bring in at one of next visits. Patient's son is primary, but has been deferring to daughter Leila as the son reportedly does not retain medical information given. Patient voices interest in completing new directives. During assessment, much emotional support offered to patient. Support offered to family as well. Psychoeducation provided on grief, depression, anxiety. Patient teary eyed a few times, and was able to cry at one point. Family presenting as supportive, encouraging patient to make decisions as well as remaining quiet so patient could talk about thoughts and feelings. Patient goals: Patient is uncertain - Return home if able; would consider alternative placement if needed at time of discharge. Plan: Follow up to complete new Advanced Directives - per patient request Make referral to [facility] for free skilled nursing care consultation If return home, provide information on medial alert Daughter plans to visit [facility] on Thursday, to see if this might be somewhere patient might like to settle to after TCU. SW to follow and assist as needed. -TERESA Smith
--- NOTE | 2024-01-07 18:28 | NURSING ---
Pt and family complaining that PRN Zofran not effective for managing pt's nausea, and note that pt's anxiety is increased today. Dr Vu entered following orders: -d/c PRN Zofran -Compazine 10mg q4hr PRN -Reglan 5mg ACHS
[2024-01-07] MEDS: Metoclopramide 10 MG Tablet 5 MG PO (21:40)
[2024-01-08] MEDS: Metoclopramide 10 MG Tablet 5 MG PO ×4 (06:54→20:48)
[2024-01-08 07:52] VITALS: BP 134/64; PULSE 59; RESP 16; TEMP 36.4; O2SAT 100
[2024-01-08] MEDS: Vitamin E 400 UNITS Capsule PO (07:54)
[2024-01-08 20:45] VITALS: RESP 16
[2024-01-09] MEDS: Metoclopramide 10 MG Tablet 5 MG PO ×4 (06:57→21:46)
[2024-01-09] MEDS: Vitamin E 400 UNITS Capsule PO (10:52)
[2024-01-09 14:37] VITALS: BP 151/71; PULSE 77; RESP 14; TEMP 36.9; O2SAT 97
[2024-01-10] MEDS: Metoclopramide 10 MG Tablet 5 MG PO ×4 (06:22→20:39)
[2024-01-10 09:18] VITALS: BP 152/72; PULSE 79; RESP 16; TEMP 36.6; O2SAT 100
[2024-01-10] MEDS: Vitamin E 400 UNITS Capsule PO (09:26)
[2024-01-10 18:38] VITALS: BP 140/70; PULSE 82
[2024-01-11] MEDS: Metoclopramide 10 MG Tablet 5 MG PO (06:06)
[2024-01-11 09:01] VITALS: BP 111/72; PULSE 67; RESP 16; TEMP 36.6; O2SAT 95
[2024-01-11] MEDS: Vitamin E 400 UNITS Capsule PO (09:03)
[2024-01-11 20:40] VITALS: RESP 16
[2024-01-12] MEDS: Vitamin E 400 UNITS Capsule PO (07:57)
[2024-01-12 09:43] VITALS: BMI 18.7
--- NOTE | 2024-01-12 10:00 | NURSING ---
Offered covid vaccine, VIS provided. Patient refuses at this time.
[2024-01-12 13:56] VITALS: BP 112/65; PULSE 73; RESP 16; TEMP 36.6; O2SAT 96
--- NOTE | 2024-01-12 18:10 | CASEMGMT ---
Social Work SW met with patient and family at bedside to complete MDS. Patient BIM () and PhQ (2) Patient reports feeling sad due to grief. Patient expressed feeling lonely at times, but expressed feeling grateful with her family visiting. SW discussed activities provided on unit. Patient expressed interest in unit activities. SW encouraged patient and family to engage with weekly activities. Patient inquired about [employer]. SW to notify E[employer]. Patient's son met with SW outside of room to express concerns for patient expression of sadness/ grief. Patient's son informed SW that the patient does not cry or express sadness. Patient's son feels the patient needs more support to improve emotional capacity to express herself. Patient's son is requesting increased activities since patient expressed interest. ESTRADA Hurst
[2024-01-13 06:04] LABS: Absolute Lymphocyte Count 1.11 X10^3/uL (0.83-4.51); Absolute Neutrophil Count 2.4 X10^3/uL (2.0-7.7); Basophil# 0.07 X10^3/uL; Basophil% 1.5 % (0-1); Eosinophil# 0.37 X10^3/uL; Eosinophils% 7.7 % (0-5); Hematocrit 40.4 % (37-47); Hemoglobin 13.1 g/dL (12.0-15.0); Lymphocyte # 1.11 X10^3/ul (0.83-4.51); Lymphocyte % 23.1 % (19-41); Mean Corp Hgb Conc 32.4 g/dL (32-36); Mean Corpuscular Hgb 30.5 pg (27.0-32.0); Mean Corpuscular Volume 94.2 fL (81-99); Mean Platelet Vol. 9.5 fl (6.2-12.0); Monocyte# 0.82 X10^3/uL; Monocyte% 17.1 % (0-10); NRBC Flagged by Analyzer 0 % (0-5); Neutrophil # 2.39 X10^3/uL (2.7-7.7); Neutrophil % 49.8 % (47-70); Platelet Count 200 K/mm3 (150-450); RBC Distribution Width CV 13.2 % (11.6-14.6); RBC Distribution Width SD 45.4 fl (35.1-43.9); Red Blood Count 4.29 M/mm3 (4.2-5.4); White Blood Count 4.8 K/mm3 (4.4-11.0)
[2024-01-13 06:52] LABS: Anion Gap 3 (5-15); BUN 18 mg/dL (7-18); BUN/Creat Ratio 27.1 RATIO (10-20); Calcium,Total 8.5 mg/dL (8.5-10.1); Chloride 110 mmol/L (98-107); Creatinine, Serum 0.66 mg/dL (0.55-1.02); EST Glomerular Filtration Rate 90 mL/min (>60); Est Glom Filt Rate - Afr Amer 109 mL/min (>60); Estimated Creatinine Clearance 37.15 ml/min; Glucose 86 mg/dL (74-106); Potassium 4.5 mmol/L (3.5-5.1); Sodium Level 141 mmol/L (136-145)
[2024-01-13] MEDS: Vitamin E 400 UNITS Capsule PO (08:01)
--- NOTE | 2024-01-13 08:40 | NURSING ---
Investigative Analyst Note; MDS for 01/12/2024 Complete
--- NOTE | 2024-01-13 08:45 | CASEMGMT ---
Social Work Social Work met with patient at bedside to discuss concerns for depression and provide support for grief. Patient informed SW that yesterday, 01/12/2024 was a hard day. Patient informed SW that she was crying throughout the day due to reminiscing of her . Patient informed SW that at times, she has a difficult time crying, but other times she is able to cry. Patient discussed memories shared with , Cirilo Romero. Patient informed SW that at times, she prays that she can return home to continue to do things, she was capable of doing prior to hospitalization. Patient informed SW that she is has been overwhelmed by the paperwork from husbands passing and medical concerns she has been experiencing. The patient informed SW that she has been receiving support from her daughter to navigate paying bills and paperwork. Patient informed SW that she would like to return home and get back to cooking. 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 Patient informed SW that when she was home, she would provide support for prior to passing and cook for her. Patient informed SW that she would attend hoahaoism services on Thursday. Patient would like to engage in activities and have additional support for grief. ESTRADA Hurst
--- NOTE | 2024-01-13 13:05 | CASEMGMT ---
Addendum entered by Tabby Domínguez 01/13/24 17:37: Jory from [facility] will be meeting with patient on 01/18/2024 between 1-2PM to provide grief counseling support. Patient and family has been notified of plan at this time. Correction: Patient PhQ- 6 Original Note: Social Work IDT met with patient and children, Leila and Jamaal with their spouses at bedside. Discussed patient progress with therapy (PT/OT/ST), dietary, and activities. Per ST, patient scored 26/50 B Cat. Patient struggles with managing finances and medications independently. Patient's daughter informed staff that family is assisting with managing finances and medications. PT/OT patient has been progressing with therapy. Patient is ambulating and transferring without equipment. Patient is ambulating 250ft with SBA/ contact guard. Patient's balance has been improving with therapy. Patient requires continued PT for endurance. OT upper body is independent; lower body is SBA. Family is encouraged to participate with therapy training. SW discussed concerns for depression. Patient's son is requesting that [facility] is contacted for grief counseling support. Patient goal is to return home. Patient's family is agreeable to home with home health, if recommended. Patient previously had [facility]. Patient would like to obtain [facility] at discharge. NIKOS contacted Dawna Chavez to obtain grief counseling support. Dawna informed NIKOS that she will contact bereavement to get support for patient. ESTRADA Hurst
[2024-01-13] MEDS: Tuberculin,Purif.prot.deriv. 50 TU/ML Vial 0.1 ML ID (13:45)
[2024-01-13 16:00] VITALS: BP 131/65; PULSE 71; RESP 18; TEMP 36.4; O2SAT 94
[2024-01-13 21:00] VITALS: PULSE 87; RESP 16; O2SAT 96
[2024-01-14 08:39] VITALS: BP 132/64; PULSE 71; RESP 17; TEMP 36.5; O2SAT 98
[2024-01-14] MEDS: Vitamin E 400 UNITS Capsule PO (08:39)
[2024-01-14 20:48] VITALS: BP 117/67; PULSE 72
[2024-01-15] MEDS: Vitamin E 400 UNITS Capsule PO (08:43)
[2024-01-15 08:48] VITALS: BP 155/66; PULSE 78; RESP 16; TEMP 36.3; O2SAT 97
[2024-01-15 11:32] VITALS: BP 140/68
--- NOTE | 2024-01-15 14:48 | MDS.RN ---
Information for the MDS was obtained from review of the clinical record, interview of resident, staff, and direct observation of resident?s care.
[2024-01-15 20:24] VITALS: PULSE 74; RESP 16; O2SAT 93
[2024-01-16 08:26] VITALS: BP 154/72; PULSE 76; RESP 16; TEMP 36.7; O2SAT 99
[2024-01-16] MEDS: Vitamin E 400 UNITS Capsule PO (08:29)
[2024-01-17] MEDS: Vitamin E 400 UNITS Capsule PO (10:42)
[2024-01-17 14:51] VITALS: BP 140/71; PULSE 72; RESP 18; TEMP 36.1; O2SAT 98
[2024-01-17 19:39] VITALS: RESP 16
[2024-01-18] MEDS: Vitamin E 400 UNITS Capsule PO (08:03)
[2024-01-18] MEDS: proCHLORPERazine 5 MG Tablet 10 MG PO (11:15)
[2024-01-18 14:51] VITALS: BP 134/69; PULSE 67; RESP 18; TEMP 36.8; O2SAT 94
--- NOTE | 2024-01-18 17:55 | CASEMGMT ---
Social Work SW met with [facility]. [facility]. Patient is not feeling well today. Jory plans to follow up with patient post discharge. Family notified Jory that patient may discharge on 01/24. NIKOS spoke with patient's daughter in office. Patient's daughter is inquiring about discharge plans. SW reviewed potential for home health care services. Patient's daughter requested referral for home assessment for salvage determiner care. SW to submit a referral for [facility]. SW to discuss discharge with care team. NIKOS will continue to monitor to provide resources for discharge. ESTRADA Hurst
[2024-01-19] MEDS: Vitamin E 400 UNITS Capsule PO (07:53)
[2024-01-19 11:11] VITALS: BMI 17.9
[2024-01-19 14:28] VITALS: BP 127/63; PULSE 76; RESP 16; TEMP 36.1; O2SAT 93
[2024-01-19 21:15] VITALS: RESP 15
[2024-01-20 05:37] VITALS: RESP 15
[2024-01-20 05:59] LABS: Absolute Lymphocyte Count 0.99 X10^3/uL (0.83-4.51); Absolute Neutrophil Count 2.3 X10^3/uL (2.0-7.7); Basophil# 0.08 X10^3/uL; Basophil% 1.9 % (0-1); Eosinophil# 0.15 X10^3/uL; Eosinophils% 3.6 % (0-5); Hematocrit 39.2 % (37-47); Hemoglobin 12.9 g/dL (12.0-15.0); Lymphocyte # 0.99 X10^3/ul (0.83-4.51); Lymphocyte % 23.5 % (19-41); Mean Corp Hgb Conc 32.9 g/dL (32-36); Mean Corpuscular Hgb 30.4 pg (27.0-32.0); Mean Corpuscular Volume 92.5 fL (81-99); Mean Platelet Vol. 9.4 fl (6.2-12.0); Monocyte# 0.66 X10^3/uL; Monocyte% 15.7 % (0-10); NRBC Flagged by Analyzer 0 % (0-5); Neutrophil # 2.32 X10^3/uL (2.7-7.7); Neutrophil % 55.1 % (47-70); Platelet Count 225 K/mm3 (150-450); RBC Distribution Width SD 43.7 fl (35.1-43.9); Red Blood Count 4.24 M/mm3 (4.2-5.4); White Blood Count 4.2 K/mm3 (4.4-11.0)
[2024-01-20 06:34] LABS: Anion Gap 4 (5-15); BUN 16 mg/dL (7-18); BUN/Creat Ratio 23.6 RATIO (10-20); Calcium,Total 8.7 mg/dL (8.5-10.1); Chloride 109 mmol/L (98-107); Creatinine, Serum 0.68 mg/dL (0.55-1.02); EST Glomerular Filtration Rate 88 mL/min (>60); Est Glom Filt Rate - Afr Amer 106 mL/min (>60); Glucose 90 mg/dL (74-106); Potassium 4.6 mmol/L (3.5-5.1); Sodium Level 139 mmol/L (136-145)
[2024-01-20] MEDS: Vitamin E 400 UNITS Capsule PO (08:19)
[2024-01-20 08:20] VITALS: BP 135/67; PULSE 80; RESP 15; TEMP 36.6; O2SAT 98
--- NOTE | 2024-01-20 12:59 | CASEMGMT ---
Social Work SW submitted [facility] referral. Patient's daughter is concerned about discharge plans. NIKOS to meet with patient to discuss discharge planning. ESTRADA Hurst
[2024-01-20] MEDS: Ensure Clear 120 ML Liquid PO (17:31)
[2024-01-21] MEDS: Ensure Clear 120 ML Liquid PO (09:11)
[2024-01-21] MEDS: Vitamin E 400 UNITS Capsule PO (09:11)
[2024-01-21 15:14] VITALS: BP 147/77; PULSE 97; RESP 16; TEMP 35.9; O2SAT 98
--- NOTE | 2024-01-21 16:41 | CASEMGMT ---
Social Work NIKOS contacted patient's daughter, Leila to discuss discharge plans. SW discussed patient request to remain on TCU for continued therapy until Thursday. Leila informed NIKOS that she discussed discharge with the patient last night. Patient would like to discharge home prior to end of Medicare 100% coverage. Leila informed NIKOS that she would like patient to discharge over weekend. NIKOS discussed coordinating discharge on Thursday01/25/2024. Leila informed NIKOS that she is agreeable to discharge on Thursday or 01/23. NIKOS discussed home health care provider with Leila. Leila informed NIKOS that family has used [facility] and [facility] in the past. Leila informed SW that she would like referral submitted to [facility] for continuity of care. NIKOS discussed home health care services with Leila. Leila would like PT/OT/ST/SN/FIXED ASSETS ACCOUNTANT services. NIKOS contacted [facility] via phone notifying of request for home health care services. Patient's daughter requested for information regarding a medical alert device. SW provided resource at bedside. Patient's daughter declined DME at this time. Patient has walker at home, per daughter. SW met at bedside with the patient and her son, Jamaal to discuss discharge plans. Patient informed NIKOS that she is agreeable to discharge home on Thursday, 01/24. SW provided patient with Notice of Medicare Non-Coverage for current Assisted Services effective 01/24/2024; anticipate discharge 01/25/2024. Patient and family provided verbal understanding and signature. A copy of [facility] was provided at bedside and left in medical chart. NIKOS reviewed home health care services and referral for choice [facility]. Patient's son inquired about discharge time. NIKOS notified patient and family that transportation can be provided between 11- on 01/25/2024. Patient's family will provide transportation to home. Patient's family inquired about medical alert device. NIKOS reviewed medical alert device resources via [facility]. Patient's family to follow up with resources. Patient declined DME at this time. [facility] referral pending acceptance Discharge: 01/25/2024 Home with Home Health PT/OT/ST/SN/FIXED ASSETS ACCOUNTANT; [facility] bereavement services ESTRADA Hurst
[2024-01-21 20:38] VITALS: PULSE 68; RESP 16
[2024-01-22] MEDS: Vitamin E 400 UNITS Capsule PO (07:57)
--- NOTE | 2024-01-22 10:45 | CASEMGMT ---
Social Work NIKOS received a call from [facility] HH Intake Admissions, Celena confirming acceptance for home health care services; SOC Thursday or pending staffing. NIKOS notified patient and daughter, Leila of delay in start of care. Leila informed NIKOS that she is attempting to arrange PCP appointment for upcoming week. Leila will confirm appointment and provide update. Patient is currently active with [facility] for Bereavement support. NIKOS contacted [facility] to request for Chucking Machine OperatorJory to follow up with patient outpatient for bereavement support. Discharge: [facility] PT/OT/SN ESTRADA Hurst
[2024-01-22 14:13] VITALS: BP 149/66; PULSE 67; RESP 16; TEMP 36.6; O2SAT 96
[2024-01-22 15:11] VITALS: PULSE 67; RESP 16
--- NOTE | 2024-01-22 15:26 | CASEMGMT ---
Social Work SW met with patient, son, Jamaal , and his at bedside to complete MDS. Patient BIM () and PhQ-9 (01/24) Patient expressed feeling better since being here, but still experience changes in appetite and feeling tired. Patient informed SW that she has been experiencing stomach issues the past couple of days that contribute to appetite changes. Patient hopes that appetite change upon return home. SW provided grief support for patient and son, Jamaal. Patient and SW explored memories of patient's . Patient's family informed SW that the patient's pentecostal will be providing meals and support at discharge. Patient's daughter will be assisting with arranging PCP follow up appointment. Jamaal informed SW that he will be supporting patient post discharge as well. Family to provide transportation at discharge. Patient anticipates discharge home with [facility] HH PT/OT/SN/WELDER RAILCAR MECHANIC SOC 01/26-01/27. ESTRADA Hurst
[2024-01-23 08:00] VITALS: BP 142/79; PULSE 69; RESP 15; TEMP 36.6; O2SAT 92
[2024-01-23] MEDS: Vitamin E 400 UNITS Capsule PO (08:03)
[2024-01-23 09:54] VITALS: PULSE 72; RESP 16
[2024-01-24 08:07] VITALS: BP 131/75; PULSE 75; RESP 16; TEMP 36.6; O2SAT 96
[2024-01-24] MEDS: Vitamin E 400 UNITS Capsule PO (08:10)
--- NOTE | 2024-01-24 10:38 | DCINST_ITS ---
Discharge Instructions Diet Discharge Diet: No restrictions Activity Discharge Activity: May Shower and - (Ambulating without an assistive device.) Weight Bearing Status: Full weight bearing Dressing / Incision Call your doctor if you observe: Fever of 101 or Higher, Shortness of breath, Dizziness, Fainting spells, Swelling in the ankles, Chest pain, Increased palpitations (irregular heartbeat), Calf discomfort and Uncontrolled pain Follow Up Care Please Follow Up With: Yoana Robles Test Results: Test results from this visit will be discussed in further detail at your follow- up appointment, if applicable. Pending Tests Upon Discharge: none Discharge Plan Admission Admit Date/Time: 01/05/24 14:50 Primary Reason for Your Visit: Debility Attending Provider: Romulo Vu Chi Primary Care Provider: Janis Leal NP Instructions Patient Instructions: Understanding Anxiety Disorders, MELISSA Additional Instructions / Restrictions: 1. I think that the nausea and issues with your stomach are due to anxiety. I have given you some literature to read about symptoms of anxiety and treatment. I am also giving you a handout on the symptoms of depression. Usually anxiety and depression go hand in hand but one is predominant. I think you are more anxious than depressed at this point. You have been started on a medication called Buspar. Buspar only treats anxiety. It is not addictive. You had 3 doses while you were still in the hospital and you have had no adverse side effects. You can not just take this medication when you feel like you need it. You have been started on a very low dose, 5 mg twice a day. Take it with breakfast and with supper. After 7-10 days if you are still feeling anxious the dose can be increased to 3 times a day. I think you would benefit from some counselling to learn how to deal with your 's . I know that hospice offers counselling to families after their loved one has passed on hospice. You could call hospice and ask to speak with the insulation cutter and former. This can be very helpful. 2. All medications have side effects. Buspar can in some people cause dizziness but, you have had 3 doses of the medication while in the hospital and you are not dizzy. You were able to eat a better breakfast today and you slept somewhat better last night and this is a good thing. People with anxiety tend to worry about everything and they perseverate on things they are worried about. They can not stop thinking about it. When people are anxious and depressed they have trouble thinking and problems with memory. 3. I am giving you a copy of your discharge summary. I do not know who your new PCP will be but, at your first appt you can take the DC summary iwth you and your new doctor could make a copy. 4. People tend to isolate when they are anxious and depressed and this makes things worse. Try not to spend too much time alone. Make sure to eat well so you can stay strong and remain out of the hospital. Try and get 8 hours sleep a night and Please talk to a counsellor about how you are feeling. 5. If you or your family have questions after you leave rehab please do not hesitate to call me. OFFICE: [phone] CELL: [phone] Discharge Orders/Prescriptions Prescriptions: New buspirone 5 mg Tablet See Rx Instructions .ROUTE .COMPLEX Qty: 60 0RF Rx Instructions: 5 mg orally with breakfast and with supper. Continued alfalfa 650 MG tablet 650 mg PO DAILY vitamin E 400 UNIT capsule 400 unit PO DAILY dadczcqmd-zjqcexik-fow-hyalur 1 EACH tablet 1 ea PO DAILY fish oil-dha-epa 1 EACH capsule 1 ea PO DAILY Referrals / Follow Up: Janis Leal NP, CLOTH MEASURER MACHINE-C [Primary Care Provider] - (Daughter will make appt ) Disposition Disposition (needs filled in before D/C Order can be placed): [facility]
--- NOTE | 2024-01-24 11:04 | PCM.PROGNOTE ---
Subjective Subjective Asked to see patient for intermittent nausea. She has not vomited. Denies abd pain. Denies diarrhea and constipation and tells me that her bowels are moving regularly. Nausea was present even before her hospital admissions. Her 7 weeks ago today and she admits to feeling anxious at times. She is sleeping well and up until this morning she has been eating well. Not tearful today. She takes no prescription medications. HGB is normal. DEnies any hx of PUD. She denies cephalgia, lightheadedness, cough, shortness of breath, chest pain, palpitations, dysuria, suprapubic pain, flank pain and calf pain. She told me that she was hol;ding her husbands hand when he passed. He was on hospice. She said he had been sick for a long time and it needed to happen but, she is sad. Objective Data Objective Data Vital Signs: Vital Signs Temp Pulse Resp BP Pulse Ox O2 Del Method 97.8 F 75 16 131/75 H 96 Room Air 01/24/24 08:07 01/24/24 08:07 01/24/24 08:07 01/24/24 08:07 01/24/24 08:07 01/24/24 08:07 Oxygen Delivery Method Room Air Weight: 94 lb 11.2 oz Body Mass Index (BMI) 17.9 Intake & Output: Intake and Output for Last 24 Hours 01/22/24 01/23/24 01/24/24 23:59 23:59 23:59 Intake Total 720 / 720 480 / 480 340 / 340 Balance 720 / 720 480 / 480 340 / 340 Medical Nutrition Assessment Dietitian: Malnutrition Criteria Met Start: 01/20/24 15:16 Freq: Status: Active Protocol: Document 01/20/24 15:16 JOSE (Rec: 01/20/24 15:16 JOSE ) Nutrition Malnutrition Evidence of Malnutrition Exists Yes Malnutrition (severe): Acute Illness/Injury Evidenced By Suboptimal Energy Intake ( Severe),Weight Loss (Severe) Intake Problem None at this time Status Inactive Problem Clinical Problem Acute Disease or Injury Related Malnutrition Etiology related to inadequate energy intake d/t not feeling well for a few days and only eating soup Signs/Symptoms as evidenced by 5.2% wt loss since adm and po intake meeting <50% of estimated nutritional needs x several days Status Active Problem Recommendation Dietitian Recommendations/Changes Continue liberal Regular diet Order ensure clear tid w/ medpass d/t signs and symptoms of malnutrition Lab / Micro Data 01/20/24 05:35 01/20/24 05:35 Physical Exam Const alert General Appearance: cooperative Orientation / Consciousness: Negative for confused HEENT Mouth: dry mucous membranes Resp normal respiratory effort Resp Narrative: FEw coarse crackles in the bases that mostly cleared after a few deep breaths. No wheezes. No conversational dyspnea. Good air exchange. Effort and Inspection: Negative for tachypneic or respiratory distress Cardio regular rate, regular rhythm, no rub and no gallops Cardio Narrative: Rare ectopic beat GI normal to inspection, nondistended, normoactive bowel sounds, soft to palpation and non-tender GI Narrative: No guarding with palpation Extremity no calf tenderness General Extremity: Negative for edema Skin Rashes: no rashes Neuro CN's II-XII intact bilaterally Psych Psych Narrative: Makes good eye contact when she speaks with me. She is sad but not tearful when talking about her . Mood & Affect: anxious Thought Content: No suicidality and No hallucination(s) Assessment & Plan Assessment/Plan (1) Debility: (2) Anxiety: (3) Meningioma: (4) Nausea alone: PLAN: Plan 1. order a BMP and CBC 2. We discussed starting a non-addictive medication for anxiety. She is agreeable to trying Buspar. Will start 5 mg BID. 3. Plan DC tomorrow. Home with [facility]. 4. Pharmacy is [facility] in [place]. Charges/Coding Visit Charges Inpatient E&M: 28695 SNF Subs L1
[2024-01-24] MEDS: busPIRone 5 MG Tablet PO ×2 (11:15→20:44)
--- NOTE | 2024-01-24 11:22 | DS.PCM_ITS ---
Providers Date of Admission: 01/05/24 Date of Discharge: 01/25/24 Primary Care Physician: Janis Leal NP Reason For Visit: CEREBELLAR LESION Diagnosis Discharge Diagnosis (1) Debility: Status: Acute Code(s): R53.81 - Other malaise (2) Anxiety: Status: Acute Code(s): F41.9 - Anxiety disorder, unspecified Plan: Will continue Buspar. Had 3 doses prior to DC with no adverse side effects. Nausea is somewhat better and she was able to eat a good breakfast the morning of DC. She slept better the night prior to DC. Will continue 5 mg BID with breakfast and with supper. I recommended she get hold of Hospice and ask for the bird raiser so that she can get some counselling. (3) Meningioma: Status: Acute Code(s): D32.9 - Benign neoplasm of meninges, unspecified Plan: Will follow up with / Travis from neurosurgery. (4) Nausea alone: Status: Acute Code(s): R11.0 - Nausea Plan: No vomiting and no abd pain. No hx of PUD. I think the nausea is related to severe anxiety. Started on Buspar. (5) Cognitive decline: Status: Acute Code(s): R41.89 - Other symptoms and signs involving cognitive functions and awareness Plan: More likely than not related to grieving her who recently passed and to anxiety/depression. Plan 1. DC home with [facility] for PT/OT/SN/PATIENT COORDINATOR 2. Continue BuSpar 5 mg p.o. twice daily 3. Recommended follow-up with hospice for grief counseling 4. Will need to follow-up with Dr. Gross for the meningioma. Medications at Discharge Home Medications alfalfa 650 mg tablet 650 mg PO DAILY supplement 02/01/20 cartilage 40 mg-collagen II 10 mg-boron 5 mg-hyaluronate 3.3 mg tablet 1 ea PO DAILY supplement 02/01/20 fish oil-dha-epa 1,200 mg-144 mg-216 mg capsule 1 ea PO DAILY supplement 02/01/20 vitamin E 268 mg (400 unit) capsule 400 unit PO DAILY supplement 02/01/20 buspirone 5 mg tablet See Rx Instructions .Route .COMPLEX #60 tabs 01/25/24 Hospital Course Operations None Procedures None Summary of Care Provided Minutes Spent on Discharge: 30 Hospital Course: Sera Romero is an 83-year-old female with no significant past medical history other than osteoarthritis and presbycusis who was admitted to [facility] with nausea/vomiting/lightheadedness. Her had recently and her daughter felt her cognition had declined. Appetite was poor. Lab was unremarkable. Chest x-ray was normal. A CT head showed a left cerebellar lesion with surrounding vasogenic edema and destruction of the inner table of the left occipital bone. MRI of the brain showed left posterior cranial fossa enhancing mass measuring 2 to 3 cm that appeared extra-axial and a diagnosis of meningioma was favored. CT scan of the abdomen and pelvis was unremarkable. She was seen by neurosurgery who recommended no acute surgical intervention but she will follow-up with Dr. Gross (neurosurgeon) following DC from TCU. While at [facility] the nausea and vomiting resolved however she has experienced intermittent nausea and decreased appetite while on TCU. She was transferred to the transitional care unit at [facility] on 01/05/2024 for strengthening/rehabilitation prior to going home. Sera has no hx of PUD and she denies vomiting, epigastric pain, abdominal cramping, constipation and diarrhea. She has been eating 75 to 100% of nearly all her meals. On 01/24/2024 she complained of nausea and only ate 25 to 49% of her breakfast. Her 7 Sundays ago and she is sad. She has not been sleeping well at night. She is anxious and perseverating. She makes good eye contact when talking with me. She has poor short term memory. Her family was present in the room when we were discussing anxiety and depression. Her problem now seems to be more anxiety than depression. She was started on Buspar 5 mg BID and had 3 doses prior to DC from TCU. She slept better on the night before discharge and she ate 75% - 100% of her breakfast. She told me she had a little nausea but, it was improved. No emesis and abd pain. Denies lightheadedness. Kept perseverating on the possible side effects of Buspar. I reassured her she is on a very low dose and she was not having any of the side effects normally associated with Buspar. I suggested to Sera that she call hospice (her was on hospice when he passed) and ask to speak to the bird raiser. I think she would benefit greatly from counselling. Sera was discharged home on 01/25/24 and will have C. RX for Buspar was faxed to [facility]. Sera is not on a calcium supplement or a Vitamin D supplement. She did not have a Vitamin D level checked while in the hospital. To her knowledge she has never had a bone density study. I told her to discuss checking a Vitamin D level and obtaining a DEXA if she has not had one in the past 2 years with her PCP. Sera will need to follow up with Dr. 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 Physical Exam Const alert General Appearance: cooperative Orientation / Consciousness: Negative for confused HEENT Mouth: dry mucous membranes Resp normal respiratory effort Resp Narrative: FEw coarse crackles in the bases that mostly cleared after a few deep breaths. No wheezes. No conversational dyspnea. Good air exchange. Effort and Inspection: Negative for tachypneic or respiratory distress Cardio regular rate, regular rhythm, no rub and no gallops Cardio Narrative: Rare ectopic beat GI normal to inspection, nondistended, normoactive bowel sounds, soft to palpation and non-tender GI Narrative: No guarding with palpation Extremity no calf tenderness General Extremity: Negative for edema Skin Rashes: no rashes Neuro CN's II-XII intact bilaterally Psych Psych Narrative: Makes good eye contact when she speaks with me. She is sad but not tearful when talking about her . Mood & Affect: anxious Thought Content: No suicidality and No hallucination(s) Medical Records Data Medical Nutrition Assessment Dietitian: Malnutrition Criteria Met Start: 01/20/24 15:16 Freq: Status: Active Protocol: Document 01/20/24 15:16 JOSE (Rec: 01/20/24 15:16 JOSE ) Nutrition Malnutrition Evidence of Malnutrition Exists Yes Malnutrition (severe): Acute Illness/Injury Evidenced By Suboptimal Energy Intake ( Severe),Weight Loss (Severe) Intake Problem None at this time Status Inactive Problem Clinical Problem Acute Disease or Injury Related Malnutrition Etiology related to inadequate energy intake d/t not feeling well for a few days and only eating soup Signs/Symptoms as evidenced by 5.2% wt loss since adm and po intake meeting <50% of estimated nutritional needs x several days Status Active Problem Recommendation Dietitian Recommendations/Changes Continue liberal Regular diet Order ensure clear tid w/ medpass d/t signs and symptoms of malnutrition Weight / BMI Weight Weight: 94 lb 11.2 oz Body Mass Index (BMI) 17.9 ABG / Lab / Microbiology Data 01/24/24 11:23 01/24/24 11:23 D/C Instructions Discharge Diet: No restrictions Weight Bearing Status: Full weight bearing Call your doctor if you observe: Fever of 101 or Higher, Shortness of breath, Dizziness, Fainting spells, Swelling in the ankles, Chest pain, Increased palpitations (irregular heartbeat), Calf discomfort and Uncontrolled pain Pending Tests Upon Discharge: none Please Follow Up With: Yoana Robles Meaningful Use Info Meaningful Use Meaningful Use Diagnoses (Choose all that apply): None applicable Ischemic Stroke Statin Dosing Therapy Reference: STATIN DOSE THERAPY REFERENCE: * Patients > 75 years receive moderate or high dose statin therapy. * Patients 75 years or YOUNGER should receive HIGH intensity statin dose unless contraindicated. You will be required to document reason for non-treatment if statin daily dose does not meet guidelines. HIGH DOSE STATIN THERAPY DAILY Atorvastatin > than or = to 40 mg Rosuvastatin > than or = to 20 mg Amlodipine + Atorvastatin > than or = to 2.5/40 mg Ezetimibe + Simvastatin 10/80 mg Simvastatin 80mg Discharge Plan Admission Admit Date/Time: 01/05/24 14:50 Primary Reason for Your Visit: Debility Attending Provider: Romulo Vu Chi Primary Care Provider: Janis Leal NP Instructions Patient Instructions: Understanding Anxiety Disorders, MELISSA Additional Instructions / Restrictions: 1. I think that the nausea and issues with your stomach are due to anxiety. I have given you some literature to read about symptoms of anxiety and treatment. I am also giving you a handout on the symptoms of depression. Usually anxiety and depression go hand in hand but one is predominant. I think you are more anxious than depressed at this point. You have been started on a medication called Buspar. Buspar only treats anxiety. It is not addictive. You had 3 doses while you were still in the hospital and you have had no adverse side effects. You can not just take this medication when you feel like you need it. You have been started on a very low dose, 5 mg twice a day. Take it with breakfast and with supper. After 7-10 days if you are still feeling anxious the dose can be increased to 3 times a day. I think you would benefit from some counselling to learn how to deal with your 's . I know that hospice offers counselling to families after their loved one has passed on hospice. You could call hospice and ask to speak with the bird raiser. This can be very helpful. 2. All medications have side effects. Buspar can in some people cause dizziness but, you have had 3 doses of the medication while in the hospital and you are not dizzy. You were able to eat a better breakfast today and you slept somewhat better last night and this is a good thing. People with anxiety tend to worry about everything and they perseverate on things they are worried about. They can not stop thinking about it. When people are anxious and depressed they have trouble thinking and problems with memory. 3. I am giving you a copy of your discharge summary. I do not know who your new PCP will be but, at your first appt you can take the DC summary iwth you and your new doctor could make a copy. 4. People tend to isolate when they are anxious and depressed and this makes things worse. Try not to spend too much time alone. Make sure to eat well so you can stay strong and remain out of the hospital. Try and get 8 hours sleep a night and Please talk to a counsellor about how you are feeling. 5. If you or your family have questions after you leave rehab please do not hesitate to call me. OFFICE: [phone] CELL: [phone] Discharge Orders/Prescriptions Prescriptions: New buspirone 5 mg Tablet See Rx Instructions .ROUTE .COMPLEX Qty: 60 0RF Rx Instructions: 5 mg orally with breakfast and with supper. Continued alfalfa 650 MG tablet 650 mg PO DAILY vitamin E 400 UNIT capsule 400 unit PO DAILY zszdocwno-bvseybzd-djl-hyalur 1 EACH tablet 1 ea PO DAILY fish oil-dha-epa 1 EACH capsule 1 ea PO DAILY Referrals / Follow Up: Janis Leal NP, INSURANCE CLERK-C [Primary Care Provider] - (Daughter will make appt ) Disposition Disposition (needs filled in before D/C Order can be placed): Home Health Service Charges/Coding Visit Charges Inpatient E&M: 74061 SNF Disch
[2024-01-24 11:37] LABS: Hematocrit 42.7 % (37-47); Hemoglobin 14.6 g/dL (12.0-15.0); Mean Corp Hgb Conc 34.2 g/dL (32-36); Mean Corpuscular Hgb 31.4 pg (27.0-32.0); Mean Corpuscular Volume 91.8 fL (81-99); Platelet Count 229 K/mm3 (150-450); RBC Distribution Width CV 12.9 % (11.6-14.6); RBC Distribution Width SD 43.3 fl (35.1-43.9); Red Blood Count 4.65 M/mm3 (4.2-5.4); White Blood Count 5.1 K/mm3 (4.4-11.0)
[2024-01-24 11:49] LABS: Anion Gap 7 (5-15); BUN 14 mg/dL (7-18); BUN/Creat Ratio 21.9 RATIO (10-20); Calcium,Total 9.1 mg/dL (8.5-10.1); Chloride 104 mmol/L (98-107); Creatinine, Serum 0.64 mg/dL (0.55-1.02); EST Glomerular Filtration Rate 94 mL/min (>60); Est Glom Filt Rate - Afr Amer 114 mL/min (>60); Glucose 94 mg/dL (74-106); Potassium 4.5 mmol/L (3.5-5.1); Sodium Level 137 mmol/L (136-145)
[2024-01-25] MEDS: busPIRone 5 MG Tablet PO (08:29)
[2024-01-25] MEDS: Vitamin E 400 UNITS Capsule PO (08:29)
[2024-01-25 12:00] VITALS: PULSE 70; RESP 16; O2SAT 98
[2024-01-25 13:28] VITALS: BP 150/76; PULSE 70; RESP 16; TEMP 36.6; O2SAT 98
== END 2024-01-25 13:25 | disposition home health service (06) | DRG 54 ==
PROVIDERS: Internal Medicine; Admitting Provider Family Medicine Geriatric Medicine; PCP Nurse Practitioner Primary Care; Referring Provider Family Medicine Geriatric Medicine; Visit Provider Family Medicine Geriatric Medicine
DX: D32.9 Benign neoplasm of meninges, unspecified (principal); G93.6 Cerebral edema; E43 Unspecified severe protein-calorie malnutrition; Z68.1 Body mass index [BMI] 19.9 or less, adult; F32.A Depression, unspecified; F09 Unspecified mental disorder due to known physiological condition; M19.90 Unspecified osteoarthritis, unspecified site; F41.9 Anxiety disorder, unspecified; H91.90 Unspecified hearing loss, unspecified ear
CPT/HCPCS: 36415; 80048; 85025; 85027; 92507; 92523; 92526; 92610; 97110; 97116; 97162; 97166; 97530; 97535; 97802